=== PATIENT | male | born 1950 | race Caucasian/White ===

== ENCOUNTER 2018-01-03 11:41 | Emergency (ER) | payer MEDICARE | END 2018-01-03 15:16 | disposition home or self-care (01) | LOC: ERS 11:41 | DX: K59.00 Constipation, unspecified (principal); R33.9 Retention of urine, unspecified; F17.210 Nicotine dependence, cigarettes, uncomplicated; I10 Essential (primary) hypertension; E78.00 Pure hypercholesterolemia, unspecified; Z86.73 Personal history of transient ischemic attack (TIA), and cerebral infarction without residual deficits | CPT/HCPCS: 51702 ==

== ENCOUNTER 2018-09-15 19:53 | Emergency (ER) | payer MEDICARE ==
[2018-09-15 20:17] LABS: #Basophils 0.1 thou/uL (0.0-0.2); #Eosinphils 0.4 thou/uL (0.0-0.7); #Lymphocytes 2.6 thou/uL (1.20-3.40); #Monocytes 0.8 thou/uL (0.11-0.59); #Neutrophils 5.8 thou/uL (1.40-6.50); %Basophils 1.5 % (0.0-1.0); %Eosinophils 3.7 % (0.0-10.0); %Monocytes 8.6 % (0.0-10.0); %Neutrophils 59.3 % (42.0-75.0); Hemoglobin 15.1 g/dL (14.0-18.0); Mean Corpuscular Hemoglobin 30.8 pg (27.0-31.0); Mean Corpuscular Volume 93.1 fL (78.0-98.0); Mean Platelet Volume 6.1 fL (7.4-10.4); Platelet Count 388 thou/uL (130-400); Red Blood Cell (RBC) Count 4.91 mill/uL (4.70-6.10); White Blood Cell (WBC) Count 9.8 thou/uL (4.8-10.8)
[2018-09-15] MEDS ORDERED: predniSONE 20 MG TAB ONE (20:36)
[2018-09-15 20:43] LABS: ALT (SGPT) 15 U/L (8-55); AST (SGOT) 15 U/L (5-34); Albumin 4.4 g/dL (3.4-4.8); Alkaline Phosphatase 78 U/L (40-150); Anion Gap 14 mmol/L (10-20); BUN (Urea Nitrogen) 10 mg/dL (8.4-25.7); Bilirubin, Total 0.6 mg/dL (0.2-1.2); Calc. Creatinine Clearance 0 mL/min (70-130); Calcium 9.8 mg/dL (7.8-10.44); Carbon Dioxide 26 mmol/L (23-31); Chloride 103 mmol/L (98-107); Estimated GFR-MDRD 83; Globulin 3.1 g/dL (2.4-3.5); Glucose 108 mg/dL (80-115); Potassium 3.6 mmol/L (3.5-5.1); Protein, Total 7.5 g/dL (5.8-8.1); Sodium 139 mmol/L (136-145)
--- NOTE | 2018-09-15 20:46 | RAD ---
CHEST ONE VIEW: 09/15/18 HISTORY: Dyspnea. COMPARISON: 04/17/10. FINDINGS: The cardiac silhouette and pulmonary vasculature are unremarkable. The lungs remain hyperinflated. No confluent air space consolidation, or evidence of pneumothorax. IMPRESSION: COPD. Chronic type findings are stable. POS: [facility]
== END 2018-09-15 23:03 | disposition home or self-care (01) ==
LOC: ERS 19:53
DX: J44.1 Chronic obstructive pulmonary disease with (acute) exacerbation (principal); F17.210 Nicotine dependence, cigarettes, uncomplicated; E78.00 Pure hypercholesterolemia, unspecified; Z86.73 Personal history of transient ischemic attack (TIA), and cerebral infarction without residual deficits
CPT/HCPCS: 71045; 80053; 84484; 85025; 93005; 94640; J7506; J7620

== ENCOUNTER 2018-10-24 14:44 | Emergency (ER) | payer MEDICARE ==
[2018-10-24 16:04] LABS: Bilirubin Negative (Negative); Blood, Urine Moderate (Negative); Clarity CLEAR (Clear); Glucose, Urine (Dipstick) Negative (Negative); Leukocyte Negative (Negative); Nitrite Negative (Negative); Protein, Urine (Dipstick) Negative (Neg-Trace); Specific Gravity, Urine 1.005 (1.002-1.036); Urobilinogen 0.2 mg/dL (0.2-1.0)
[2018-10-24 16:07] LABS: Bacteria/HPF None Seen HPF (None Seen); Hyaline Casts/LPF 0-3 HYALINE CAST LPF (0-3 Hyaline); Pathc Cast-AUWi Flag 0.14 (0-2.49); Squamous Epithelial None Seen HPF (0-3); WBC/HPF 0-3 HPF (0-3)
--- NOTE | 2018-10-24 16:39 | RAD ---
ABDOMEN 2 VIEWS: Date: 10/24/18 HISTORY: Constipation and urinary retention. COMPARISON: None. FINDINGS: There is marked stool burden throughout the rectum. No air fluid levels are appreciated. On the uprig ht view, there is no free air under the hemidiaphragms. Mild dextroscoliosis of the thoracolumbar galdino ction. Moderate vascular calcifications. IMPRESSION: Moderate stool burden. POS: [facility]
== END 2018-10-24 16:50 | disposition home or self-care (01) ==
LOC: ERS 14:44
DX: R33.9 Retention of urine, unspecified (principal); K59.00 Constipation, unspecified; I10 Essential (primary) hypertension; J44.9 Chronic obstructive pulmonary disease, unspecified; F17.210 Nicotine dependence, cigarettes, uncomplicated
CPT/HCPCS: 51702; 74019; 81003; 81015

== ENCOUNTER 2019-01-28 08:54 | Outpatient (CLI) | payer MEDICARE ==
[2019-01-28] MEDS ORDERED: ISOVUE-370 76%-LOCM 1 ML ONE (09:52)
--- NOTE | 2019-01-28 09:58 | CT ---
CT Chest W Con History: COPD, hypertension Comparison: Chest CT 2017 Findings: There is an abnormal new nodule within the anterior segment right upper lobe which is spicu lated measuring approximately 5 mm. Calcified granuloma right lower lobe. New left infrahilar mass measures 3.8 x 3.2 x 4.5 cm highly suggestive of malignancy. There is minima l bronchial extension of this mass within the posterior and lateral basal left lower lobe bronchi with postobstructive pneumonitis. Left upper lobe is clear. Healing anterior left third rib fracture. No mediastinal adenopathy. No pericardial effusion. No supraclavicular adenopathy. Cyst interpolar po sterior cortex right kidney. Moderate vascular calcifications. Adrenal glands appear to be uninvolved. Moderate emphysematous changes. Impression: Large left left lower lobe mass with endobronchial extension and postobstructive pneumoni tis. Likely a satellite nodule within the right upper lobe. Findings are highly suggestive of malignancy. Pulmonary consultation recommended. This appears amenable to transbronchial biopsy.
== END 2019-01-28 08:55 | disposition home or self-care (01) ==
LOC: BICCT 08:54
PROVIDERS: ATTEND Nurse Practitioner Family
DX: J44.9 Chronic obstructive pulmonary disease, unspecified (principal); I10 Essential (primary) hypertension; Z12.5 Encounter for screening for malignant neoplasm of prostate; R63.6 Underweight; I25.10 Atherosclerotic heart disease of native coronary artery without angina pectoris; E78.5 Hyperlipidemia, unspecified; E55.9 Vitamin D deficiency, unspecified; R91.8 Other nonspecific abnormal finding of lung field; J18.9 Pneumonia, unspecified organism; Z72.0 Tobacco use
CPT/HCPCS: 71260

== ENCOUNTER 2019-03-01 06:08 | Day surgery (SDC) | payer MEDICARE ==
[2019-02-28 16:10] VITALS: BMI 18.8
[2019-03-01] MEDS ORDERED: Lidocaine 4% PF 5 ML AMP NEB SCH (07:00)
[2019-03-01] MEDS ORDERED: Sodium Chloride 0.9% 1,000 ML IV SCH (07:00)
[2019-03-01] MEDS ORDERED: Fentanyl 100 MCG/2 ML VIAL ONE (07:13)
[2019-03-01] MEDS ORDERED: Midazolam HCl 2 mg/2 ml Vial ONE (07:13)
[2019-03-01] MEDS ORDERED: Ketamine 50 MG/ML (10ML VIAL) ONE (07:14)
[2019-03-01] MEDS ORDERED: Lidocaine 4% Topical Sol 50 ML BOT ONE (07:27)
[2019-03-01] MEDS ORDERED: Albuterol Sulfate HFA (OR ONLY) ONE (07:27)
--- NOTE | 2019-03-01 10:48 | OP ---
DATE OF PROCEDURE: 03/01/2019 PROCEDURE PERFORMED: Fiberoptic bronchoscopy with endobronchial biopsy and endobronchial brushings. PREOPERATIVE DIAGNOSIS: Left lower lobe lung mass. POSTOPERATIVE DIAGNOSIS: Left lower lobe lung mass. ANESTHESIA: General endotracheal. DESCRIPTION OF PROCEDURE: Informed consent was signed by the patient prior to the procedure. He understood the risks involved including bleeding, infection, external lung puncture, and reaction to anesthesia. He agreed to proceed. The patient was brought to the endoscopy suite and placed on cardiopulmonary monitoring. He was intubated by Anesthesia after being given the appropriate preanesthetic agents. The endotracheal tube size was 8.0. An Olympus flexible bronchoscope was inserted through an adapter while the patient was on mechanical ventilation. The trachea had some scant mucoid secretions present. He had an accessory lobe coming off his trachea going towards the right upper lobe area. His right mainstem bronchus demonstrated an otherwise normal right lower lobe, right middle lobe. He also had a segment going up to where his right upper lobe should be. The left mainstem bronchus was normal to the bifurcation. Left upper lobe was normal in appearance. Left lower lobe showed a pedunculated tumor coming off the posterior aspect, which I could get the bronchoscope around. This tumor was biopsied and brushed. There was minimal bleeding. This was treated with topical epinephrine. The patient tolerated procedure well, was extubated by anesthesia after the procedure. Job ID: [id number]
[2019-03-01] MEDS ORDERED: Dexamethasone 20 MG/5 ML VIAL ONE (14:56)
[2019-03-01] MEDS ORDERED: EPINEPHrine 1 MG/10 ML Abboject SYRINGE ONE (14:56)
[2019-03-01] MEDS ORDERED: PROPOFOL 200 MG/20 ML VIAL ONE (14:56)
[2019-03-01] MEDS ORDERED: PHENYLEPHRINE-NS 100 MCG/ML 10 ML SYRINGE ONE (14:56)
[2019-03-01] MEDS ORDERED: Ondansetron PF 4 MG/2 ML Vial ONE (14:56)
[2019-03-01] MEDS ORDERED: Succinylcholine Chloride 20 MG/ML 10 ml SYRINGE FS ONE (14:56)
[2019-03-01] MEDS ORDERED: Lidocaine 1% PF 5 ML VIAL ONE (14:56)
== END 2019-03-01 10:00 | disposition home or self-care (01) ==
LOC: CANPRESDC → SDC 06:08
PROVIDERS: ATTEND Internal Medicine Critical Care Medicine
PROC: 0BDJ8ZX Extraction of Left Lower Lung Lobe, Via Natural or Artificial Opening Endoscopic, Diagnostic (ICD-10-PCS; principal; 2019-03-01)
PROC: 0BBJ8ZX Excision of Left Lower Lung Lobe, Via Natural or Artificial Opening Endoscopic, Diagnostic (ICD-10-PCS; 2019-03-01)
DX: C34.32 Malignant neoplasm of lower lobe, left bronchus or lung (principal); I10 Essential (primary) hypertension; J44.9 Chronic obstructive pulmonary disease, unspecified; M19.90 Unspecified osteoarthritis, unspecified site; Z86.73 Personal history of transient ischemic attack (TIA), and cerebral infarction without residual deficits; Z87.891 Personal history of nicotine dependence; Z88.2 Allergy status to sulfonamides; Z79.899 Other long term (current) drug therapy
CPT/HCPCS: 88104; 88112; 88305; 88313; 88341; 88342; J0131; J0171; J1100; J2001; J2250; J2405; J2704; J3010; J7620

== ENCOUNTER 2019-03-12 12:07 | Outpatient (CLI) | payer MEDICARE ==
--- NOTE | 2019-03-12 15:12 | PET ---
PET W CT Skull to Mid Thigh History: Malignant neoplasm of lower lobe, left bronchus or lung Comparison: CT chest January 28, 2019 Findings: PET CT from skull base to mid thigh was performed after the intravenous administration of 1 1.6 mCi F-18 FDG. Left lower lobe mass is similar in size with an SUV max 11.7. Post obstructive pneumonitis posterior and lateral basal left lower lobe. No metastatic supraclavicular or hilar adenopathy. No subcarinal or paratracheal adenopathy. No internal mammary or axillary adenopathy. No abnormal adrenal gland mass. No metastatic adenopathy within the retroperitoneum. No hepatic mass. No abnormal osseous radiotracer uptake. No pneumothorax. Moderate centrilobular emphysema. No free intraperitoneal gas or fluid. Moderate eulogio cified plaque of the aorta without aneurysmal dilatation. No hydronephrosis. Impression: Left lower lobe malignancy with endobronchial extension without evidence of metastatic di sease.
== END 2019-03-12 12:08 | disposition home or self-care (01) ==
LOC: PET 12:07
PROVIDERS: ATTEND Internal Medicine Hematology & Oncology
DX: C34.90 Malignant neoplasm of unspecified part of unspecified bronchus or lung (principal); C34.32 Malignant neoplasm of lower lobe, left bronchus or lung
CPT/HCPCS: 78815; A9552

== ENCOUNTER 2019-03-13 09:10 | Outpatient (CLI) | payer MEDICARE ==
--- NOTE | 2019-03-13 10:44 | MRI ---
Brain MRI with and without contrast: 03/13/2019 COMPARISON: Brain MRI without contrast 04/17/2010 HISTORY: Lung cancer, assess for metastatic disease TECHNIQUE: Multiplanar multisequence MR imaging of the brain is obtained with and without contrast FINDINGS: The diffusion weighted imaging demonstrates no evidence for acute infarction. There is extensive periventricular, deep, and subcortical white matter T2 and FLAIR hyperintensity, e vidence of significant small vessel disease. There is no midline shift or mass effect. There is mild diffuse ventricular enlargement with associat ed prominence of the CSF containing spaces. There is mild mucosal thickening involving the left maxillary sinus. There is patchy increased T2 signal identified within the camille, suggesting small vessel disease. The postcontrast imaging demonstrates no abnormal enhancement within the brain parenchyma to suggest the presence of intracranial metastatic disease. Arterial flow voids at the axial level of the skull base appear unremarkable on the T2-weighted imagi ng. Postcontrast imaging is slightly limited on the basis of motion artifact on the coronal and sagittal sequences. IMPRESSION: Evidence of small vessel disease. No MR evidence of intracranial metastatic disease.
== END 2019-03-13 09:11 | disposition home or self-care (01) ==
LOC: MRI 09:10
PROVIDERS: ATTEND Internal Medicine Hematology & Oncology
DX: C34.32 Malignant neoplasm of lower lobe, left bronchus or lung (principal); G93.9 Disorder of brain, unspecified
CPT/HCPCS: 70553

== ENCOUNTER 2019-03-26 08:52 | Day surgery (SDC) | payer MEDICARE ==
--- NOTE | 2019-03-22 12:39 | HP ---
SERVICE: Pulmonary Medicine. REASON FOR CONSULTATION: Mediastinal lymphadenopathy. HISTORY OF PRESENT ILLNESS: The patient is a 68-year-old white male with past medical history significant for a new diagnosis of adenocarcinoma of the lung. PET scan was negative for distal metastatic disease. The mediastinal lymph nodes were also unremarkable. That being said, he did have some small non-pathologic lymph nodes, but prominent in the mediastinal region. There are below the threshold of PET. Dr. Juarez has requested an endoscopic bronchial ultrasound for staging purposes. The patient is currently in his usual state of health. Otherwise, there are no complaints there. For past medical history, surgical history, family history, and social history, please refer to the H and P by Dr. Mulligan on March 01, 2019. ALLERGIES: SULFA. MEDICATIONS: For list of medications, please refer to Dr. Benito's H and P from this encounter. REVIEW OF SYSTEMS: General, head, ears, eyes, nose, throat, cardiovascular, respiratory, GI, , musculoskeletal, neurologic, and skin is negative except as mentioned in the HPI. IMAGING DATA: MRI of the brain demonstrates no acute intracranial abnormality. There is no evidence of metastatic disease in the FREELANCE DATA ENTRY. PET scan demonstrates left lower lobe malignancy, it is FDG avid. No evidence of metastatic disease is otherwise appreciated. CT of the chest dated January 28, 2019, demonstrates small mediastinal lymph nodes that are below the threshold of the PET. That being said, they are prominent but not quite considered pathologic based on radiographic standards. Particularly, there is an L4, 7, and L10 lymph node, which can be seen on CT evaluation. ASSESSMENT: 1. Adenocarcinoma of the lung. 2. Chronic obstructive pulmonary disease, very severe. DISCUSSION AND PLAN: I will proceed with an endoscopic bronchial-guided ultrasound fine-needle aspiration of L4, 7, and L10 if they can be identified on ultrasound. The patient will follow up with Dr. Juarez as previously directed. I am going to coordinate with Dr. Benito to attempt to do this procedure at the same time. Tentatively, we are scheduled for Tuesday, March 26, 2019. Job ID: [id number] MTDD
[2019-03-25 08:38] VITALS: BMI 19.9
[2019-03-26 09:50] LABS: #Basophils 0.1 thou/uL (0.0-0.2); #Eosinphils 0.2 thou/uL (0.0-0.7); #Lymphocytes 3.7 thou/uL (1.20-3.40); #Neutrophils 8.5 thou/uL (1.40-6.50); %Basophils 0.5 % (0.0-1.0); %Eosinophils 1.2 % (0.0-10.0); %Lymphocytes 27.8 % (21.0-51.0); %Monocytes 7.1 % (0.0-10.0); %Neutrophils 63.4 % (42.0-75.0); Hemoglobin 14.6 g/dL (14.0-18.0); Mean Corpuscular HGB CONC 32.5 g/dL (32.0-36.0); Mean Corpuscular Hemoglobin 29.2 pg (27.0-31.0); Mean Corpuscular Volume 89.8 fL (78.0-98.0); Mean Platelet Volume 5.9 fL (7.4-10.4); Platelet Count 367 thou/uL (130-400); RBC Distribution Width 12.5 % (11.5-14.5); Red Blood Cell (RBC) Count 4.99 mill/uL (4.70-6.10); White Blood Cell (WBC) Count 13.3 thou/uL (4.8-10.8)
[2019-03-26 09:59] LABS: INR-International Normal Ratio 0.9; PTT 27.1 SEC (22.9-36.1); Prothrombin Time 12.4 SEC (12.0-14.7)
[2019-03-26 10:10] LABS: Anion Gap 14 mmol/L (10-20); BUN (Urea Nitrogen) 17 mg/dL (8.4-25.7); Calc. Creatinine Clearance 51 mL/min (70-130); Calcium 9.7 mg/dL (7.8-10.44); Carbon Dioxide 26 mmol/L (23-31); Chloride 100 mmol/L (98-107); Estimated GFR-MDRD 80; Glucose 94 mg/dL (83-110); Potassium 4.4 mmol/L (3.5-5.1); Sodium 136 mmol/L (136-145)
[2019-03-26] MEDS ORDERED: Fentanyl 100 MCG/2 ML VIAL ONE ×2 (10:58→13:06)
[2019-03-26] MEDS ORDERED: Lidocaine 2% PF 5 ML VIAL ONE (10:58)
[2019-03-26] MEDS ORDERED: Bupivacaine/Epinephrine 0.25% 30 ML VIAL ONE (10:58)
--- NOTE | 2019-03-26 13:10 | OP ---
DATE OF PROCEDURE: 03/26/2019 PREOPERATIVE DIAGNOSIS: Lung cancer. POSTOPERATIVE DIAGNOSIS: Lung cancer. PROCEDURE PERFORMED: Tunneled central line with subcutaneous port (MediPort CT injectable). ANESTHESIA: General. ESTIMATED BLOOD LOSS: Minimal. COMPLICATIONS: None. SPECIMENS: None. FINDINGS: Tip of the catheter was at the atriocaval junction. DESCRIPTION OF PROCEDURE: The patient was taken to the operating room and laid supine on the operating room table. After general anesthetic was obtained, his bilateral neck and chest was shaved, prepped, and draped in a sterile fashion. Local anesthetic was infiltrated over the right internal jugular vein. Internal jugular vein was cannulated using a 22-gauge finder needle followed by a Seldinger needle. Wire was passed into superior vena cava under fluoro guidance. A dimas was made at the wire entrance site. A separate 3-cm incision made in the right upper chest. Subcutaneous pocket was made below the lower incision. Tubing for the MediPort tunneled from inferior to superior incision. Introducer sheath was placed over the wire into the superior vena cava under fluoro guidance. The dilator and wire were removed. The end of the catheter was sewn into the sheath. As the sheath was peeled away, the tip of the catheter was at the atriocaval junction. MediPort tubing was cut to fit the MediPort at the lower incision, MediPort tubing was connected to the MediPort. MediPort was sewn to the chest wall in the subcutaneous pocket using Prolene. MediPort flushes and draws blood without difficulty. It was flushed with a heparin flush. The wounds were all irrigated and closed using 3-0 Vicryl, 4-0 Monocryl, and Dermabond. The patient was sent to Recovery in stable condition. All instrument counts, needle counts, and lap counts were correct. Job ID: [id number]
--- NOTE | 2019-03-26 13:37 | PRG ---
DATE OF SERVICE: 03/26/2019 SERVICE: Pulmonary Medicine. INTERVAL HISTORY: The patient has increasing shortness of breath. He had a little bit of hypoxemic respiratory failure. He was initiated on oxygen. He denies any current chest pain, fevers, cough, nausea, or vomiting. Otherwise, he is in his usual state of health. He continues to have a little bit of dyspnea when he gets around, but not worse than typical. PHYSICAL EXAMINATION: VITAL SIGNS: Afebrile, pulse 60, blood pressure 124/67, respirations 16, saturation 92% on 1 L nasal cannula. GENERAL: The patient is awake and alert, in no apparent distress. LUNGS: Decent air entry on the right. Dependent crackles are minimal. No prolonged expiratory phase or wheezing is appreciated. HEART: Normal rate and regular. ABDOMEN: Soft, nontender, and nondistended. Bowel sounds are positive. MUSCULOSKELETAL: No cyanosis or clubbing. There is no pitting in the bilateral lower extremities. NEUROLOGIC: Grossly nonfocal. LABORATORY DATA: Hemoglobin is stable at 9.0. WBC 8.9, platelets 233,000. Sodium 132. Basic metabolic profile is otherwise unremarkable. Urinalysis is unremarkable. Urine protein electrophoresis is essentially unremarkable. Blood cultures x2 remain negative. ASSESSMENT: 1. Acute on chronic hypoxic respiratory failure. 2. 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 3. Pulmonary mass in the right upper lobe. 4. Bilateral pleural effusions, small. DISCUSSION AND PLAN: Pulmonary will continue to follow, intermittently while the patient remains inhouse. He has no further requirements at this point, he is stable, however, for transition out of the hospital. He will need to follow up with Oncology as previously directed. Job ID: [id number]
--- NOTE | 2019-03-26 13:48 | RAD ---
EXAM: Single view of the chest HISTORY: Line placement COMPARISON: None FINDINGS: Single view of the chest shows a normal sized cardiomediastinal silhouette. A right IJ Med iport is seen with its tip in the superior vena cava. No pneumothorax is seen. There is no evidence of consolidation, mass, or pleural effusion. The bones are unremarkable. IMPRESSION: No evidence of acute cardiopulmonary disease
--- NOTE | 2019-03-26 17:25 | OP ---
DATE OF PROCEDURE: 03/26/2019 SERVICE: Pulmonary Medicine. PROCEDURE PERFORMED: Fiberoptic bronchoscopy with, 1. Limited visual airway inspection. 2. Endoscopic bronchial ultrasound-guided transbronchial needle aspiration of station L4, 7, L10. PREOPERATIVE DIAGNOSES: 1. Adenocarcinoma of the lung. 2. Mediastinal lymphadenopathy. POSTOPERATIVE DIAGNOSES: 1. Adenocarcinoma of the lung. 2. Mediastinal lymphadenopathy. ANESTHESIA: General. PREANESTHESIA ASSESSMENT: H and P had been performed. The patient's medications and allergies were reviewed. Informed consent was obtained after discussing the rationale, benefits, and risks of the procedure. Alternative options for sample collection were discussed. TIME-OUT: The patient was positively identified with name and date of . The proposed procedure was verified. DESCRIPTION OF PROCEDURE: After induction of anesthesia, the curvilinear endoscopic bronchial ultrasound Olympus bronchoscope was introduced through the endotracheal tube and into the tracheobronchial tree. Limited airway inspection was performed. No abnormality was identified in the mainstem bronchi or trachea. The bronchoscope was then withdrawn into the trachea and a jorge survey was performed. Endoscopic bronchial ultrasound, transbronchial needle aspiration of station L4 in the AP window, 7, and L10 was completed. There was no significant bleeding post biopsy. By ultrasound, the lymph nodes did not have a pathologic appearance. They seemed to respect all tissue planes. The patient had stable vitals throughout the entire procedure without significant desaturation. FINDINGS: 1. Shyla appeared slightly blunted. 2. Rapid on-site pathology demonstrated no malignant cells on preliminary review. SPECIMENS OBTAINED: Final aspiration of station L4, 7, L10 for cytology. COMPLICATIONS: None. ESTIMATED BLOOD LOSS: 2 mL. DISPOSITION: The patient will be discharged home once he meets criteria. Job ID: [id number]
--- NOTE | 2019-03-26 18:55 | EKG ---
Test Reason : PREOP Blood Pressure : / mmHG Vent. Rate : 078 BPM Atrial Rate : 078 BPM P-R Int : 136 ms QRS Dur : 072 ms QT Int : 376 ms P-R-T Axes : 078 055 080 degrees QTc Int : 428 ms Sinus rhythm with occasional Premature ventricular complexes ST abnormality, possible digitalis effect Abnormal ECG When compared with ECG of 15-SEP-2018 20:07, Premature ventricular complexes are now Present Confirmed by ANISHA LARA, SGeoff ([id number]) on 03/26/2019 6:54:46 PM Referred By: JAYJAY Confirmed By:DR. Mp LANCASTER MD
== END 2019-03-26 15:10 | disposition home or self-care (01) ==
LOC: SDC 08:52
PROVIDERS: ATTEND Surgery
PROC: 0JH83XZ Insertion of Tunneled Vascular Access Device into Abdomen Subcutaneous Tissue and Fascia, Percutaneous Approach (ICD-10-PCS; principal; 2019-03-26)
PROC: 05HM33Z Insertion of Infusion Device into Right Internal Jugular Vein, Percutaneous Approach (ICD-10-PCS; 2019-03-26)
PROC: 07978ZX Drainage of Thorax Lymphatic, Via Natural or Artificial Opening Endoscopic Approach, Diagnostic (ICD-10-PCS; 2019-03-26)
DX: C34.90 Malignant neoplasm of unspecified part of unspecified bronchus or lung (principal); R59.0 Localized enlarged lymph nodes; J44.9 Chronic obstructive pulmonary disease, unspecified; I10 Essential (primary) hypertension; M19.90 Unspecified osteoarthritis, unspecified site; E78.5 Hyperlipidemia, unspecified; Z88.2 Allergy status to sulfonamides
CPT/HCPCS: 36415; 71045; 80048; 85025; 85610; 85730; 88172; 88173; 88177; 93005; 93010; C1788; J1642; J2001; J3010; J7620

== ENCOUNTER 2019-06-02 10:12 | Inpatient (IN) | payer MEDICARE ==
[2019-06-02] MEDS ORDERED: Piperacillin/Tazobactam 4.5 GM VIAL ONE ×2 (10:27→10:29)
[2019-06-02] MEDS ORDERED: Dexamethasone 4 mg/ml Vial ONE (10:27)
[2019-06-02 10:36] LABS: Actual Bicarbonate (HCO3a) 18.3 mEq/L (22-28); Analyzer IN Cardio ER; Base Excess (BEa) -6.6 mEq/L (-2.0 to +3.0); CO2 Tension 34.2 mmHg (35.0-45.0); Carboxyhemoglobin (COHb) 0.1 gm% (0.0-3.0); Hemoglobin (Hb) 9.6 g/dL (14.0-18.0); O2 Tension (PaO2) 96.7 mmHg (> 70.0); Potassium - ABG Lab 3.71 mmol/L (3.70-5.30); pH, Arterial 7.35 (7.35-7.45)
[2019-06-02 10:37] LABS: Puncture Site RR
--- NOTE | 2019-06-02 10:37 | RAD ---
Chest one view HISTORY: Dyspnea. COMPARISON: 03/26/2019: FINDINGS: Cardiac silhouette is magnified by projection. Pulmonary vasculature is unremarkable. Media stinum is midline with aortic calcification and a right internal jugular Port-A-Cath. Lungs are hyperinflated. Subtle parenchymal opacity at the left lateral lung base is present. It is m uch less dense and is smaller than the parenchymal opacity on the previous exam. Calcified granulomata are consistent with healed granulomatous disease. Old left rib fractures. No ev idence of pneumothorax. IMPRESSION: Emphysema. Minimal scarring/atelectasis left lung base. No active cardiopulmonary abnormalities are reliably demonstrated. Atherosclerosis.
[2019-06-02 11:21] LABS: #Eosinphils 0.1 thou/uL (0.0-0.7); #Lymphocytes 0.8 thou/uL (1.20-3.40); #Monocytes 0.6 thou/uL (0.11-0.59); #Neutrophils 7.4 thou/uL (1.40-6.50); %Basophils 0.2 % (0.0-1.0); %Eosinophils 1.5 % (0.0-10.0); %Lymphocytes 8.9 % (21.0-51.0); %Monocytes 6.7 % (0.0-10.0); %Neutrophils 82.7 % (42.0-75.0); Anisocytosis SLIGHT = 6-15 cells (100X) (0-5/hpf); Hemoglobin 9.3 g/dL (14.0-18.0); MDiff Complete? YES; Mean Corpuscular HGB CONC 34.4 g/dL (32.0-36.0); Mean Corpuscular Hemoglobin 32.8 pg (27.0-31.0); Mean Corpuscular Volume 95.2 fL (78.0-98.0); Mean Platelet Volume 5.5 fL (7.4-10.4); Platelet Count 245 thou/uL (130-400); Red Blood Cell (RBC) Count 2.84 mill/uL (4.70-6.10); White Blood Cell (WBC) Count 8.9 thou/uL (4.8-10.8)
[2019-06-02 11:29] LABS: ALT (SGPT) 13 U/L (8-55); AST (SGOT) 15 U/L (5-34); Albumin 4.1 g/dL (3.4-4.8); Alkaline Phosphatase 81 U/L (40-110); Anion Gap 17 mmol/L (10-20); BUN (Urea Nitrogen) 20 mg/dL (8.4-25.7); Bilirubin, Total 0.7 mg/dL (0.2-1.2); CK (CPK) 113 U/L (30-200); Calc. Creatinine Clearance 0 mL/min (70-130); Calcium 8.8 mg/dL (7.8-10.44); Carbon Dioxide 20 mmol/L (23-31); Chloride 105 mmol/L (98-107); Estimated GFR-MDRD Greater than 90; Globulin 2.2 g/dL (2.4-3.5); Glucose 156 mg/dL (83-110); Lipase 14 U/L (8-78); Potassium 3.8 mmol/L (3.5-5.1); Protein, Total 6.3 g/dL (5.8-8.1); Sodium 138 mmol/L (136-145)
[2019-06-02 11:33] LABS: CKMB 2.5 ng/mL (0-6.6)
--- NOTE | 2019-06-02 14:52 | HP ---
CHIEF COMPLAINT: Shortness of breath. HISTORY OF PRESENT ILLNESS: The patient is a 69-year-old male with a past medical history of hypertension, COPD, hyperlipidemia, lung cancer and CVA 9 years ago, who presented to the emergency room with complaints of shortness of breath, which is going on for approximately 3 days. He denied any fever or chills. He has some nonproductive cough. He denies any chest pain. His primary care physician is Mya Loo in [facility]. The surrogate decision maker is the daughter. PAST MEDICAL HISTORY: As mentioned above. 1. Hyperlipidemia. 2. Hypertension. 3. CVA. 4. COPD. 5. Lung cancer, status post chemo and radiation treatments. PAST SURGICAL HISTORY: Lung biopsy x2. SOCIAL HISTORY: He drinks socially. He smokes about half a pack of cigarettes per day. He does not use any illicit drugs. MEDICATIONS: 1. DuoNeb every 4 hours. 2. Prednisone 20 mg once a day. 3. Flomax twice a day 0.4 mg. 4. Amlodipine 10 mg once a day. 5. Aspirin 81 mg once a day. FAMILY HISTORY: Mother had pneumonia and she when she was 82 and there is not much known about his father. REVIEW OF SYSTEMS: All 14 systems were reviewed and they are positive for constipation, bowel movements every third day, lack of appetite for the last few days, some weight loss recently and otherwise all systems were negative except for those symptoms mentioned in HPI. PHYSICAL EXAMINATION: VITAL SIGNS: Blood pressure is 84/56, pulse is 110, respiratory rate is 24 to 26. HEENT: His head is atraumatic and normocephalic. Eyes are PERRLA. Sclerae are nonicteric. Conjunctivae palish. Oral mucosa is somewhat dry. NECK: Supple. LUNGS: Very emphysematous. No crackles, no rales, no wheezing. HEART: S1, S2. Tachycardic. No S3. No S4. ABDOMEN: Soft, nontender, nondistended. EXTREMITIES: No clubbing, cyanosis, or edema. NEUROLOGIC: He follows my commands. He moves his all 4 extremities. There is no any sensory or motor deficits present. Cranial nerves are intact. LABORATORY DATA: Labs showed white count of 8.9, hemoglobin of 9.3, hematocrit 27.0, platelet count 245,000. ABGs showed pH of 7.35, pCO2 of 34.2, PO2 of 96.7. Electrolytes within normal limits. CO2 of 20, BUN 20, creatinine 0.82. Lactic acid 3.8, globulin 2.2. EKG personally reviewed by me showed sinus tachycardia, nonspecific ST-T wave abnormalities. Chest x-ray showed very emphysematous lungs, no infiltrates. IMPRESSION: 1. Exacerbation of chronic obstructive pulmonary disease with hypoxia. 2. Hypertension, per history. 3. Hypotension. I think this is related to this BiPAP mask use. 4. Hyperlipidemia. 5. Lung cancer, status post chemo and radiation recently finished. PLAN: Full admission to [facility]. Condition is guarded. DNR/DNI status. IV fluids normal saline at 75 mL/hour. The patient received 1 L of IV fluids. We are going to continue his Levaquin 500 mg IV piggyback every 24 hours. He received 750 mg one dose in the emergency room. I am not going to continue vancomycin or Zosyn he received in the emergency room. He received also Decadron 10 mg IV push and we will start him on Solu-Medrol tonight every 6 hours 40 mg. We will continue DuoNebs, albuterol and Atrovent every 4 hours and we will switch him to a Ventimask 50%. We will do DVT prophylaxis with SCDs and Lovenox 30 mg subcutaneously every day. Job ID: [id number]
[2019-06-02 15:19] LABS: Lactic Acid 4.8 mmol/L (0.5-2.2)
[2019-06-02] MEDS ORDERED: Ondansetron ODT 4 MG TAB SL PRN (16:59)
[2019-06-02] MEDS ORDERED: Sodium Chloride 0.9% 1,000 ML IV SCH (16:59)
[2019-06-02] MEDS ORDERED: Ondansetron PF 4 MG/2 ML Vial IVP PRN ×2 (16:59→17:06)
[2019-06-02] MEDS ORDERED: Piperacillin/Tazobactam 4.5 GM in Sodium Chloride 0.9% 100 ML IVPB SCH (18:00)
[2019-06-02] MEDS: Budesonide 0.25 MG/2 ML NEB INH SCH (18:36)
[2019-06-02] MEDS: methylPREDNISolone Sod Succ/PF 125 MG/2 ML VIAL IVP SCH (19:12)
[2019-06-02] MEDS ORDERED: Lorazepam 0.5 MG TAB PO PRN (19:23)
[2019-06-02] MEDS: Sodium Chloride 0.9% 1,000 ML IV SCH (20:23)
[2019-06-02] MEDS ORDERED: Dexamethasone 10 MG/ML VIAL SLOW IVP SCH (22:00)
[2019-06-02] MEDS ORDERED: Vancomycin HCl 1 GM in Premix Bag 1 BAG IVPB SCH (22:00)
[2019-06-03] MEDS: methylPREDNISolone Sod Succ/PF 125 MG/2 ML VIAL IVP SCH ×4 (00:09→18:38)
[2019-06-03 06:05] LABS: Anion Gap 13 mmol/L (10-20); BUN (Urea Nitrogen) 17 mg/dL (8.4-25.7); Calc. Creatinine Clearance 65 mL/min (70-130); Calcium 8.3 mg/dL (7.8-10.44); Carbon Dioxide 19 mmol/L (23-31); Chloride 108 mmol/L (98-107); Estimated GFR-MDRD Greater than 90; Glucose 142 mg/dL (83-110); Potassium 3.8 mmol/L (3.5-5.1); Sodium 136 mmol/L (136-145)
[2019-06-03] MEDS: Sodium Chloride 0.9% 1,000 ML IV SCH (06:23)
[2019-06-03 06:47] LABS: #Lymphocytes 0.4 thou/uL (1.20-3.40); #Monocytes 0.3 thou/uL (0.11-0.59); %Lymphocytes 5.4 % (21.0-51.0); %Neutrophils 90.6 % (42.0-75.0); Mean Corpuscular HGB CONC 34.4 g/dL (32.0-36.0); Mean Corpuscular Hemoglobin 33.1 pg (27.0-31.0); Mean Corpuscular Volume 96.3 fL (78.0-98.0); Mean Platelet Volume 5.7 fL (7.4-10.4); Platelet Count 224 thou/uL (130-400); RBC Distribution Width 19.1 % (11.5-14.5); Red Blood Cell (RBC) Count 2.41 mill/uL (4.70-6.10); White Blood Cell (WBC) Count 7.8 thou/uL (4.8-10.8)
[2019-06-03] MEDS: Budesonide 0.25 MG/2 ML NEB INH SCH ×2 (07:39→19:25)
[2019-06-03] MEDS: Docusate 100 MG CAP PO SCH ×2 (08:48→20:10)
[2019-06-03] MEDS: Enoxaparin Sodium 30 MG/0.3 ML SYRINGE SC SCH (08:48)
[2019-06-03] MEDS: Loratadine 10 MG TAB PO SCH (08:48)
[2019-06-03] MEDS ORDERED: FLU VACC TS2019-20(65YR UP)/PF 180 MCG/0.5 ML SYRINGE IM ONE (09:00)
[2019-06-03] MEDS ORDERED: Prevnar 13-Val Conj/PF 0.5 ML SYRINGE IM ONE (09:00)
--- NOTE | 2019-06-03 12:33 | PRG ---
DATE OF SERVICE: 06/03/2019 SUBJECTIVE: The patient is seen and examined at the bedside. He is feeling better. His appetite is fair. There were no any unexpected events overnight. He is on nasal cannula using through his mouth. OBJECTIVE: VITAL SIGNS: Blood pressure is 117/67, pulse is 114, respirations 18, O2 saturation 99% on 2 L by nasal cannula, his pulse oximetry is , and temperature is 99.3. HEENT: His eyes are PERRLA. Sclerae are nonicteric. Oral mucosa is moist. LUNGS: Emphysematous. No wheezing. HEART: S1 and S2. Tachycardic. No S3. No S4. ABDOMEN: Soft, nontender, nondistended. EXTREMITIES: No clubbing, cyanosis, or edema. NEUROLOGIC: Intact. LABORATORY DATA: White count of 7.8, hemoglobin 8.0, hematocrit 23.2, platelet count is 224,000. Sodium of 136, potassium 3.8, chloride 108, CO2 is 19, creatinine 0.75, BUN 17, glucose 142, and calcium 8.3. Microbiology, 2 blood cultures negative so far. IMPRESSION: 1. Acute exacerbation of chronic obstructive pulmonary disease. 2. Acute on chronic respiratory failure. 3. Hypertension per history. 4. Hypotension. The patient's blood pressure recovered as soon as his BiPAP mask was taken off and he was switched to nasal cannula yesterday. 5. Hyperlipidemia. 6. Lung cancer, status post chemotherapy and radiation therapy recently finished. PLAN: We will continue his DNR/DNI status. He is in IMCU. His IV fluids will be stopped. He is able to eat and drink orally. We will continue his levofloxacin. Continue his DuoNeb. We will continue his Solu-Medrol and inhaled steroids. Wool Classer is supposed to see him today. Job ID: [id number]
--- NOTE | 2019-06-03 13:37 | CON ---
DATE OF CONSULTATION: HISTORY OF PRESENT ILLNESS: Hernan Forde is a 69-year-old gentleman with known COPD, known bronchogenic carcinoma, adeno, who sees Dr. Mulligan. Presented with increasing shortness of breath, unresponsive to usual home medication. Still having difficulty breathing this morning. Sputum is relatively clear. Most days, he can barely walk half a block without getting markedly short of breath. He was smoking until most recently. He is given the Solu-Medrol and magnesium. PAST MEDICAL HISTORY: Hypertension, high cholesterol, COPD, previous CVA, COPD, lung cancer, adeno, status post chemoradiation. PREVIOUS SURGERIES: Apparently MediPort, bronchoscopy. SOCIAL HISTORY: He said he has quit smoking. No alcohol abuse. HOME MEDICATIONS: Include; 1. Prednisone. 2. Lovastatin. 3. Losartan. 4. Albuterol. 5. Amlodipine. ALLERGIES: SULFA. REVIEW OF SYSTEMS: Otherwise, 10-point negative. PHYSICAL EXAMINATION: VITAL SIGNS: On examination, blood pressure is 151/68, pulse 109, saturations , and respirations 18. CHEST: Decreased breath sounds. No wheezing. CARDIAC: Normal S1 and S2. No gallops. ABDOMEN: No masses. NEUROLOGIC: He is awake, alert, and responsive. LABORATORY DATA: PO2 was 96, pCO2 on 3 L nasal O2. His lytes are normal. His bicarb was 20. Lactic acid slightly elevated. ASSESSMENT: 1. Chronic obstructive pulmonary disease exacerbation. 2. Bronchitis. 3. Anemia. 4. Lung cancer. PLAN: Continue neb treatments, steroids. Added Dulera to his present treatment. We will follow. Notify Dr. Mulligan. Consultation note, 70 minutes, 50% direct patient care. Job ID: [id number]
[2019-06-03] MEDS ORDERED: Loratadine 10 MG TAB PO PRN (13:48)
[2019-06-03] MEDS: Mometasone/Formoterol 120 PUFF INHALER INH SCH (19:26)
[2019-06-03] MEDS: Rosuvastatin 10 MG TAB PO SCH (20:10)
[2019-06-03] MEDS: Calcium Carbonate 500 MG ChewTAB PO PRN (23:03)
[2019-06-04] MEDS: methylPREDNISolone Sod Succ/PF 125 MG/2 ML VIAL IVP SCH ×4 (00:55→17:25)
[2019-06-04 04:00] LABS: #Lymphocytes 0.3 thou/uL (1.20-3.40); #Monocytes 0.5 thou/uL (0.11-0.59); #Neutrophils 9.8 thou/uL (1.40-6.50); %Eosinophils 0.1 % (0.0-10.0); %Lymphocytes 3.1 % (21.0-51.0); %Monocytes 5.1 % (0.0-10.0); %Neutrophils 91.7 % (42.0-75.0); Hemoglobin 8.2 g/dL (14.0-18.0); Mean Corpuscular HGB CONC 34.2 g/dL (32.0-36.0); Mean Corpuscular Hemoglobin 33.1 pg (27.0-31.0); Mean Platelet Volume 5.5 fL (7.4-10.4); Platelet Count 229 thou/uL (130-400); RBC Distribution Width 19.1 % (11.5-14.5); Red Blood Cell (RBC) Count 2.49 mill/uL (4.70-6.10); White Blood Cell (WBC) Count 10.6 thou/uL (4.8-10.8)
[2019-06-04 04:21] LABS: Anion Gap 10 mmol/L (10-20); BUN (Urea Nitrogen) 21 mg/dL (8.4-25.7); Calc. Creatinine Clearance 65 mL/min (70-130); Calcium 8.8 mg/dL (7.8-10.44); Carbon Dioxide 24 mmol/L (23-31); Chloride 107 mmol/L (98-107); Estimated GFR-MDRD Greater than 90; Glucose 151 mg/dL (83-110); Potassium 3.3 mmol/L (3.5-5.1); Sodium 138 mmol/L (136-145)
[2019-06-04] MEDS: Mometasone/Formoterol 120 PUFF INHALER INH SCH ×2 (07:22→18:19)
[2019-06-04] MEDS: Budesonide 0.25 MG/2 ML NEB INH SCH ×2 (07:22→18:19)
[2019-06-04] MEDS: Aspirin Chewable 81 MG TAB PO SCH (08:32)
[2019-06-04] MEDS: Losartan 25 MG TAB PO SCH (08:32)
[2019-06-04] MEDS: Loratadine 10 MG TAB PO SCH (08:32)
[2019-06-04] MEDS: Amlodipine 5 MG TAB PO SCH (08:32)
[2019-06-04] MEDS: Docusate 100 MG CAP PO SCH ×2 (08:33→22:08)
[2019-06-04] MEDS: Enoxaparin Sodium 30 MG/0.3 ML SYRINGE SC SCH (08:33)
[2019-06-04] MEDS: Calcium Carbonate 500 MG ChewTAB PO PRN ×3 (08:39→22:09)
[2019-06-04] MEDS ORDERED: SAW PALMETTO 450 MG PO SCH (09:00)
--- NOTE | 2019-06-04 09:19 | PRG ---
DATE OF SERVICE: 06/04/2019 SUBJECTIVE: The patient is still complaining of shortness of breath. Has no other complaints at this time. OBJECTIVE: VITAL SIGNS: His temperature is 98.8, pulse 103, blood pressure 128/82, and O2 saturation 100% on room air. HEENT: Unremarkable. NECK: No adenopathy or JVD. LUNGS: Diminished breath sounds throughout. No wheezing. He has a radiation burn in left chest posteriorly. CARDIOVASCULAR: S1 and S2. Tachycardic. ABDOMEN: Soft. EXTREMITIES: No edema. LABORATORY DATA: White blood cell count 10.6, hematocrit 24.1, and platelet count 229. Sodium 138, potassium 3.3, chloride 107, CO2 of 24, BUN 21, creatinine 0.7, and glucose 151. ASSESSMENT: 1. Chronic obstructive pulmonary disease with exacerbation. 2. Lactic acidosis at the time of admission. 3. Status post radiation chemotherapy for lung cancer. PLAN: In addition to the current treatment of steroids, nebulization therapy, and antibiotics, I would go ahead and check an echo and just make sure his cardiac status is okay. The degree of lactic acidosis is little unusual given the apparent mildness of his pulmonary symptoms. We also need to keep in mind that he is profoundly anemic and that could also be contributing to his shortness of breath. Job ID: [id number]
[2019-06-04] MEDS ORDERED: Potassium Chloride 20 MEQ TAB PO SCH (09:45)
[2019-06-04] MEDS ORDERED: ISOVUE-370 76%-LOCM 1 ML ONE (11:04)
--- NOTE | 2019-06-04 11:14 | CT ---
EXAM: CTA of the chest HISTORY: Shortness of breath COMPARISON: None TECHNIQUE: Multiple contiguous axial images were obtained a CTA of the chest with contrast per pulmon hannah embolism protocol. 3-D oblique MIP reformats and direct coronal reformats were performed. FINDINGS: HEART: Normal in size without focal cardiac abnormality. PULMONARY ARTERIES: Normal in caliber without filling defects to suggest pulmonary emboli. MEDIASTINUM: No hilar or mediastinal lymphadenopathy. LUNGS: Bibasilar atelectasis. A calcified granuloma is seen in the right lung base. Emphysematous melchor nges are seen in the lungs. PLEURAL SPACE: No pleural effusion or pneumothorax. CHEST WALL SOFT TISSUES: A right-sided Mediport is seen with its tip in the superior vena cava. VISUALIZED OSSEOUS STRUCTURES: Unremarkable VISUALIZED SUBDIAPHRAGMATIC STRUCTURES: Right renal cyst IMPRESSION: 1. No evidence of pulmonary thromboembolism 2. Severe emphysema 3. Bibasilar atelectasis
--- NOTE | 2019-06-04 18:29 | PDOC.HOSPP ---
- Subjective Encounter Date: 06/04/19 Encounter Time: 18:00 Subjective: The patient states he feels much better compared to yesterday his breathing has improved. Reports that he felt sudden onset of shortness of breath, had no fevers, chills or chest pain. He denied any recent infection - Objective Vital Signs & Weight: Vital Signs (12 hours) Temp Pulse Resp BP Pulse Ox 06/04/19 18:18 109 H 20 94 L 06/04/19 18:00 99 06/04/19 17:00 99 06/04/19 16:00 98.0 F 06/04/19 12:00 98.7 F 06/04/19 10:10 111 H 20 95 06/04/19 08:32 123 H 153/73 H 95 06/04/19 07:47 98.8 F 06/04/19 07:24 97 06/04/19 07:21 115 H 14 98 Weight Admit Weight 112 lb 9.6 oz Weight 112 lb 9.6 oz Most Recent Monitor Data Heart Rate from ECG 110 NIBP 120/75 NIBP BP-Mean 90 Respiration from ECG 27 SpO2 92 I&O: 06/03/19 06/04/19 06/05/19 06:59 06:59 06:59 Intake Total 1049 1620 820 Output Total 200 1325 300 Balance 849 295 520 Result Diagrams: 06/04/19 03:43 06/04/19 03:43 Hospitalist ROS - Review of Systems Constitutional: denies: sweats, weakness - Medication Medications: Active Medications Generic Name Dose Route Start Last Admin Trade Name Freq PRN Reason Stop Dose Admin Albuterol/Ipratropium 3 ml 06/02/19 17:04 06/03/19 04:52 Duoneb NEB 3 ml [id number] PRN Administration SOB &/or Wheezing Albuterol/Ipratropium 3 ml 06/02/19 18:30 06/04/19 18:18 Duoneb NEB 3 ml [id number] GARRY Administration Amlodipine Besylate 5 mg 06/04/19 09:00 06/04/19 08:32 Norvasc PO 5 mg DAILY GARRY Administration Aspirin 81 mg 06/04/19 09:00 06/04/19 08:32 Aspirin Chewable PO 81 mg DAILY GARRY Administration Budesonide 0.25 mg 06/02/19 18:30 06/04/19 18:19 Pulmicort Neb Solution INH 0.25 mg BID-RT GARRY Administration Calcium Carbonate 1,000 mg 06/03/19 21:45 06/04/19 16:15 Tums PO 1,000 mg Q6H PRN Administration HEARTBURN/INDIGESTION Cholecalciferol 1,000 units 06/04/19 09:00 06/04/19 08:33 Vitamin D3 PO 1,000 units DAILY GARRY Administration Docusate Sodium 100 mg 06/03/19 09:00 06/04/19 08:33 Colace PO Not Given BID GARRY Enoxaparin Sodium 30 mg 06/03/19 09:00 06/04/19 08:33 Lovenox SC 30 mg 0900 GARRY Administration Levofloxacin 500 mg/ Device 100 mls @ 100 mls/hr 06/03/19 11:00 06/04/19 09: 57 IVPB 100 mls 1100 GARRY Administration Loratadine 10 mg 06/03/19 09:00 06/04/19 08:32 Claritin PO 10 mg DAILY GARRY Administration Lorazepam 0.5 mg 06/02/19 19:23 06/03/19 08:15 Ativan PO 0.5 mg Q6H PRN Administration Anxiety Losartan Potassium 25 mg 06/04/19 09:00 06/04/19 08:32 Cozaar PO 25 mg DAILY GARRY Administration Methylprednisolone Sodium Succinate 40 mg 06/02/19 18:00 06/04/19 17:25 Solu-Medrol IVP 40 mg Q6HR GARRY Administration Mometasone Furoate/Formoterol Fumar 2 puff 06/03/19 18:30 06/04/19 18:19 Dulera 200 Mcg/5 Mcg Inhaler INH 2 puff BID-RT GARRY Administration Rosuvastatin Calcium 10 mg 06/03/19 21:00 06/03/19 20:10 Crestor PO 10 mg HS GARRY Administration - Exam General Appearance: NAD, awake alert Eye: PERRL, anicteric sclera ENT: normocephalic atraumatic, no oropharyngeal lesions Neck: supple, symmetric, no JVD, no thyromegaly Heart: RRR, no murmur, no gallops, no rubs, normal peripheral pulses Respiratory: CTAB, no wheezes, no rales, no ronchi Gastrointestinal: soft, non-tender, non-distended Extremities: no cyanosis, no clubbing, no edema Skin: normal turgor, no lesions, no rashes Neurological: cranial nerve grossly intact, normal sensation to touch, no focal deficits, no new deficit Musculoskeletal: normal tone, normal strength, no muscle wasting Psychiatric: normal affect, normal behavior, A&O x 3, oriented to person Hosp A/P - Plan CTA chest: no evidence of PE, severe emphysema, bibasilar atelectasis Chest X ray: emphysema. Minimal scarring/atelectasis left lung base. No active cardiopulmonary abnormalities. Atherosclerosis This is a 69 year old male with past medical history of lung cancer, COPD, hyperlipidemia, hypertension, CV, COPD who presented with acute shortness of breath, requirign ICU admission on 50% venti-mask Acute hypoxic respiratory failure likely secondary to COPD exacerbation - chest X ray showed emphysema, CTA showed no PE, firsit troponin negative - blood cultures are negative, continue IV methylprednisone for now, continue IV levaquin - check ECHO Lactic acidosis - resolved -was 4.8 on admission, now down to 2.0, unclear etiology, repeat troponins and ECHO - no evidence of pneumonia Hypokalemia - potassium 3.3, s/p 40 meq potassium Anemia - Hb 8.2, B12 and folate normal History of Lung cancer - in remission currently BPH - flomax and tamulosin Hypertension - continue amlodipine and losartan Code status: full code Diet: regular diet
[2019-06-04 19:25] LABS: Potassium 3.6 mmol/L (3.5-5.1)
[2019-06-04] MEDS: Rosuvastatin 10 MG TAB PO SCH (22:09)
[2019-06-05] MEDS: methylPREDNISolone Sod Succ/PF 125 MG/2 ML VIAL IVP SCH (02:00)
[2019-06-05] MEDS ORDERED: methylPREDNISolone Sod Succ 40 MG VIAL IVP SCH (06:00)
[2019-06-05] MEDS: Mometasone/Formoterol 120 PUFF INHALER INH SCH ×2 (07:30→19:03)
[2019-06-05] MEDS: Budesonide 0.25 MG/2 ML NEB INH SCH ×2 (07:31→19:02)
[2019-06-05] MEDS: Loratadine 10 MG TAB PO SCH (09:22)
[2019-06-05] MEDS: Enoxaparin Sodium 30 MG/0.3 ML SYRINGE SC SCH (09:22)
[2019-06-05] MEDS: Aspirin Chewable 81 MG TAB PO SCH (09:23)
[2019-06-05] MEDS: Docusate 100 MG CAP PO SCH ×2 (09:23→19:25)
[2019-06-05] MEDS: Amlodipine 5 MG TAB PO SCH (09:23)
[2019-06-05] MEDS: Losartan 25 MG TAB PO SCH (09:23)
--- NOTE | 2019-06-05 10:32 | PRG ---
DATE OF SERVICE: 06/05/2019 SUBJECTIVE: He feels better, had no acute complaints. OBJECTIVE: VITAL SIGNS: Temperature is 98.6, pulse 105, blood pressure 127/77, O2 saturations in the low 90s. HEENT: Unremarkable. NECK: No adenopathy or JVD. LUNGS: Poor air movement. CARDIAC: S1 and S2. Regular. ABDOMEN: Soft. EXTREMITIES: No edema. IMAGING STUDIES: CT of the chest was reviewed. He had no evidence of pulmonary emboli. His lung mass is dramatically better to the point, where I do not even see residual at this time. LABORATORY DATA: None obtained today. ASSESSMENT: 1. Chronic obstructive pulmonary disease with exacerbation. 2. Acute on chronic hypoxic respiratory failure. PLAN: Transfer to the medical floor. Continue steroids, nebs, antibiotics. Await results of the echo. Job ID: [id number]
[2019-06-05] MEDS: methylPREDNISolone Sod Succ 40 MG VIAL IVP SCH ×3 (11:26→23:32)
--- NOTE | 2019-06-05 15:36 | PDOC.HOSPP ---
- Subjective Encounter Date: 06/05/19 Encounter Time: 15:00 Subjective: The patient states his breathing is much better. He has been weaned off to room air. Denies chest pain. Denies cough or fevers. He is about to have a bath - Objective Vital Signs & Weight: Vital Signs (12 hours) Temp Pulse Resp BP Pulse Ox 06/05/19 15:27 98.6 F 06/05/19 14:21 103 H 16 06/05/19 11:22 98.4 F 06/05/19 10:43 104 H 17 94 L 06/05/19 09:23 106 H 134/84 06/05/19 07:36 95 06/05/19 07:31 108 H 13 06/05/19 07:20 98.6 F 06/05/19 05:30 99 F 06/05/19 03:47 96 Weight Admit Weight 112 lb 9.6 oz Weight 112 lb Most Recent Monitor Data Heart Rate from ECG 115 NIBP 131/76 NIBP BP-Mean 94 Respiration from ECG 12 SpO2 98 I&O: 06/04/19 06/05/19 06/06/19 06:59 06:59 06:59 Intake Total 1620 980 480 Output Total 1325 400 Balance 295 580 480 Result Diagrams: 06/04/19 03:43 06/04/19 19:03 Hospitalist ROS - Review of Systems Constitutional: denies: chills Eyes: denies: vision change ENT: denies: ear discharge Respiratory: denies: cough, dry - Medication Medications: Active Medications Generic Name Dose Route Start Last Admin Trade Name Freq PRN Reason Stop Dose Admin Albuterol/Ipratropium 3 ml 06/02/19 17:04 06/03/19 04:52 Duoneb NEB 3 ml [id number] PRN Administration SOB &/or Wheezing Albuterol/Ipratropium 3 ml 06/02/19 18:30 06/05/19 14:21 Duoneb NEB 3 ml [id number] GARRY Administration Amlodipine Besylate 5 mg 06/04/19 09:00 06/05/19 09:23 Norvasc PO 5 mg DAILY GARRY Administration Aspirin 81 mg 06/04/19 09:00 06/05/19 09:23 Aspirin Chewable PO 81 mg DAILY GARRY Administration Budesonide 0.25 mg 06/02/19 18:30 06/05/19 07:31 Pulmicort Neb Solution INH 0.25 mg BID-RT GARRY Administration Calcium Carbonate 1,000 mg 06/03/19 21:45 06/04/19 22:09 Tums PO 1,000 mg Q6H PRN Administration HEARTBURN/INDIGESTION Cholecalciferol 1,000 units 06/04/19 09:00 06/05/19 09:22 Vitamin D3 PO 1,000 units DAILY GARRY Administration Docusate Sodium 100 mg 06/03/19 09:00 06/05/19 09:23 Colace PO 100 mg BID GARRY Administration Enoxaparin Sodium 30 mg 06/03/19 09:00 06/05/19 09:22 Lovenox SC 30 mg 0900 GARRY Administration Levofloxacin 500 mg/ Device 100 mls @ 100 mls/hr 06/03/19 11:00 06/05/19 11: 26 IVPB 100 mls 1100 GARRY Administration Loratadine 10 mg 06/03/19 09:00 06/05/19 09:22 Claritin PO 10 mg DAILY GARRY Administration Lorazepam 0.5 mg 06/02/19 19:23 06/03/19 08:15 Ativan PO 0.5 mg Q6H PRN Administration Anxiety Losartan Potassium 25 mg 06/04/19 09:00 06/05/19 09:23 Cozaar PO 25 mg DAILY GARRY Administration Methylprednisolone Sodium Succinate 20 mg 06/05/19 12:00 06/05/19 11:26 Solu-Medrol IVP 20 mg Q6HR GARRY Administration Mometasone Furoate/Formoterol Fumar 2 puff 06/03/19 18:30 06/05/19 07:30 Dulera 200 Mcg/5 Mcg Inhaler INH 2 puff BID-RT GARRY Administration Rosuvastatin Calcium 10 mg 06/03/19 21:00 06/04/19 22:09 Crestor PO 10 mg HS GARRY Administration - Exam General Appearance: NAD, awake alert Eye: PERRL, anicteric sclera ENT: normocephalic atraumatic, no oropharyngeal lesions Neck: supple, symmetric, no JVD, no thyromegaly Heart: RRR, no murmur, no gallops Respiratory - other findings: diminished breath sounds bilaterally Gastrointestinal: soft, non-tender, non-distended Extremities: no cyanosis, no clubbing, no edema Skin: normal turgor, no lesions, no rashes Neurological: cranial nerve grossly intact, normal sensation to touch, no focal deficits, no new deficit Musculoskeletal: normal tone, normal strength, no muscle wasting Psychiatric: normal affect, normal behavior, A&O x 3 Hosp A/P - Plan CTA chest: no evidence of PE, severe emphysema, bibasilar atelectasis Chest X ray: emphysema. Minimal scarring/atelectasis left lung base. No active cardiopulmonary abnormalities. Atherosclerosis This is a 69 year old male with past medical history of lung cancer, COPD, hyperlipidemia, hypertension, CV, COPD who presented with acute shortness of breath, requiring ICU admission on 50% venti-mask Acute hypoxic respiratory failure likely secondary to COPD exacerbation - chest X ray showed emphysema, CTA showed no PE, troponins negative - blood cultures are negative. Steroids weaned to 20 mg q6 hours per pulmonary. Continue IV levaquin day 3 - ECHO done and pending Lactic acidosis - resolved -was 4.8 on admission, now down to 2.0, unclear etiology, repeat troponins and ECHO - no evidence of pneumonia Hypokalemia - resolved Anemia - Hb 8.2, B12 and folate normal History of Lung cancer - in remission currently BPH - flomax and tamulosin Hypertension - continue amlodipine and losartan Code status: full code Diet: regular diet
[2019-06-05] MEDS: Rosuvastatin 10 MG TAB PO SCH (19:24)
[2019-06-05] MEDS: Calcium Carbonate 500 MG ChewTAB PO PRN (19:31)
[2019-06-06] MEDS: methylPREDNISolone Sod Succ 40 MG VIAL IVP SCH (05:37)
[2019-06-06] MEDS: Budesonide 0.25 MG/2 ML NEB INH SCH ×2 (07:02→18:44)
[2019-06-06] MEDS: Mometasone/Formoterol 120 PUFF INHALER INH SCH ×2 (07:03→18:44)
[2019-06-06] MEDS: Losartan 25 MG TAB PO SCH (08:24)
[2019-06-06] MEDS: Enoxaparin Sodium 30 MG/0.3 ML SYRINGE SC SCH (08:24)
[2019-06-06] MEDS: Amlodipine 5 MG TAB PO SCH (08:24)
[2019-06-06] MEDS: Aspirin Chewable 81 MG TAB PO SCH (08:25)
[2019-06-06] MEDS: Loratadine 10 MG TAB PO SCH (08:25)
[2019-06-06] MEDS: Docusate 100 MG CAP PO SCH ×2 (08:25→20:45)
[2019-06-06] MEDS: predniSONE 20 MG TAB PO SCH (09:04)
--- NOTE | 2019-06-06 09:57 | PRG ---
DATE OF SERVICE: 06/06/2019 SUBJECTIVE: Mr. Forde feels good today. OBJECTIVE: VITAL SIGNS: Temperature is 98.2, pulse 105, respirations 20, sat 92%. HEENT: Unremarkable. NECK: No JVD. No bruits. LUNGS: Clear without wheezing, rhonchi. CARDIAC: S1, S2. Regular. ABDOMEN: Soft. EXTREMITIES: No edema. ASSESSMENT: Chronic obstructive pulmonary disease with exacerbation. PLAN: CT pulmonary angiogram was normal. Echocardiogram shows some mild diastolic dysfunction. He is probably ready to go home. I will switch him over to oral steroids and oral antibiotics. Job ID: [id number]
[2019-06-06] MEDS: Rosuvastatin 10 MG TAB PO SCH (20:45)
--- NOTE | 2019-06-06 21:27 | PDOC.HOSPP ---
- Subjective Encounter Date: 06/06/19 Encounter Time: 11:00 Subjective: The patient is feeling better. Denies significant cough, just mild with lynn sputum. Shortness of breath is better. He is on room air. - Objective Vital Signs & Weight: Vital Signs (12 hours) Temp Pulse Resp BP Pulse Ox 06/06/19 20:45 102 H 06/06/19 19:14 98.1 F 111 H 20 122/69 94 L 06/06/19 18:44 106 H 18 92 L 06/06/19 14:46 99 20 90 L 06/06/19 10:40 100 20 90 L Weight Admit Weight 112 lb 9.6 oz Weight 110 lb 1 oz Most Recent Monitor Data Heart Rate from ECG 106 NIBP 108/65 NIBP BP-Mean 79 Respiration from ECG 15 SpO2 92 I&O: 06/05/19 06/06/19 06/07/19 06:59 06:59 06:59 Intake Total 980 1121 Output Total 400 600 600 Balance 580 521 -600 Result Diagrams: 06/04/19 03:43 06/04/19 19:03 Hospitalist ROS - Review of Systems Constitutional: denies: chills, sweats Eyes: denies: vision change - Medication Medications: Active Medications Generic Name Dose Route Start Last Admin Trade Name Freq PRN Reason Stop Dose Admin Albuterol/Ipratropium 3 ml 06/02/19 17:04 06/03/19 04:52 Duoneb NEB 3 ml [id number] PRN Administration SOB &/or Wheezing Albuterol/Ipratropium 3 ml 06/02/19 18:30 06/06/19 18:44 Duoneb NEB 3 ml [id number] GARRY Administration Amlodipine Besylate 5 mg 06/04/19 09:00 06/06/19 08:24 Norvasc PO 5 mg DAILY GARRY Administration Aspirin 81 mg 06/04/19 09:00 06/06/19 08:25 Aspirin Chewable PO 81 mg DAILY GARRY Administration Budesonide 0.25 mg 06/02/19 18:30 06/06/19 18:44 Pulmicort Neb Solution INH 0.25 mg BID-RT GARRY Administration Calcium Carbonate 1,000 mg 06/03/19 21:45 06/05/19 19:31 Tums PO 1,000 mg Q6H PRN Administration HEARTBURN/INDIGESTION Cholecalciferol 1,000 units 06/04/19 09:00 06/06/19 08:24 Vitamin D3 PO 1,000 units DAILY GARRY Administration Docusate Sodium 100 mg 06/03/19 09:00 06/06/19 20:45 Colace PO Not Given BID GARRY Enoxaparin Sodium 30 mg 06/03/19 09:00 06/06/19 08:24 Lovenox SC 30 mg 0900 GARRY Administration Levofloxacin 500 mg 06/06/19 09:00 06/06/19 09:04 Levaquin PO 500 mg 0900 GARRY Administration Lorazepam 0.5 mg 06/02/19 19:23 06/03/19 08:15 Ativan PO 0.5 mg Q6H PRN Administration Anxiety Losartan Potassium 25 mg 06/04/19 09:00 06/06/19 08:24 Cozaar PO 25 mg DAILY GARRY Administration Mometasone Furoate/Formoterol Fumar 2 puff 06/03/19 18:30 06/06/19 18:44 Dulera 200 Mcg/5 Mcg Inhaler INH 2 puff BID-RT GARRY Administration Prednisone 40 mg 06/06/19 09:00 06/06/19 09:04 Prednisone PO 40 mg DAILY GARRY Administration Rosuvastatin Calcium 10 mg 06/03/19 21:00 06/06/19 20:45 Crestor PO 10 mg HS GARRY Administration - Exam General Appearance: NAD, awake alert Eye: PERRL, anicteric sclera ENT: normocephalic atraumatic, no oropharyngeal lesions Neck: supple, symmetric, no JVD Heart: RRR, no murmur, no gallops, no rubs Respiratory: no rales, no ronchi. negative: wheezes Gastrointestinal: soft, non-tender, non-distended Extremities: no cyanosis, no clubbing, no edema Skin: normal turgor, no lesions, no rashes Neurological: cranial nerve grossly intact, normal sensation to touch, no focal deficits, no new deficit Musculoskeletal: normal tone, normal strength, no muscle wasting Hosp A/P - Plan CTA chest: no evidence of PE, severe emphysema, bibasilar atelectasis Chest X ray: emphysema. Minimal scarring/atelectasis left lung base. No active cardiopulmonary abnormalities. Atherosclerosis This is a 69 year old male with past medical history of lung cancer, COPD, hyperlipidemia, hypertension, CV, COPD who presented with acute shortness of breath, requiring ICU admission on 50% venti-mask Acute hypoxic respiratory failure likely secondary to COPD exacerbation - resolved - patient admitted and was requiring oxygen in ICU but now transferred to floor on room air - chest X ray showed emphysema, CTA showed no PE, troponins negative - blood cultures are negative. Steroids weaned to oral prednisone and levaquin switched to oral today. - ECHO done and unremarkable Lactic acidosis - resolved -was 4.8 on admission, now down to 2.0, unclear etiology, repeat troponins and ECHO - no evidence of pneumonia Hypokalemia - resolved Anemia - Hb 8.2, B12 and folate normal History of Lung cancer - in remission currently BPH - flomax and tamulosin Hypertension - continue amlodipine and losartan Code status: full code Diet: regular diet
[2019-06-07 05:37] LABS: Mean Corpuscular HGB CONC 33.6 g/dL (32.0-36.0); Mean Corpuscular Hemoglobin 32.9 pg (27.0-31.0); Mean Corpuscular Volume 97.8 fL (78.0-98.0); Mean Platelet Volume 5.8 fL (7.4-10.4); Platelet Count 192 thou/uL (130-400); RBC Distribution Width 18.7 % (11.5-14.5); Red Blood Cell (RBC) Count 2.74 mill/uL (4.70-6.10); White Blood Cell (WBC) Count 6.8 thou/uL (4.8-10.8)
[2019-06-07 05:59] LABS: Anion Gap 7 mmol/L (10-20); BUN (Urea Nitrogen) 26 mg/dL (8.4-25.7); Calc. Creatinine Clearance 61 mL/min (70-130); Calcium 8.7 mg/dL (7.8-10.44); Carbon Dioxide 32 mmol/L (23-31); Chloride 103 mmol/L (98-107); Estimated GFR-MDRD Greater than 90; Glucose 104 mg/dL (83-110); Potassium 3.2 mmol/L (3.5-5.1); Sodium 139 mmol/L (136-145)
[2019-06-07] MEDS: Budesonide 0.25 MG/2 ML NEB INH SCH (07:04)
[2019-06-07] MEDS: Mometasone/Formoterol 120 PUFF INHALER INH SCH (07:08)
[2019-06-07 07:37] VITALS: BP 153/72; TEMP 98.3
[2019-06-07] MEDS: predniSONE 20 MG TAB PO SCH (08:33)
[2019-06-07] MEDS: Losartan 25 MG TAB PO SCH (08:34)
[2019-06-07] MEDS: Docusate 100 MG CAP PO SCH (08:34)
[2019-06-07] MEDS: Aspirin Chewable 81 MG TAB PO SCH (08:34)
[2019-06-07] MEDS: Enoxaparin Sodium 30 MG/0.3 ML SYRINGE SC SCH (08:34)
[2019-06-07] MEDS: Amlodipine 5 MG TAB PO SCH (08:34)
--- NOTE | 2019-06-07 09:43 | PRG ---
DATE OF SERVICE: 06/07/2019 SUBJECTIVE: He feels well and wants to go home. OBJECTIVE: VITAL SIGNS: Temperature 98.3, pulse 94, respirations 20, O2 saturation 93%, and blood pressure 153/72. HEENT: Unremarkable. NECK: No adenopathy or JVD. CHEST: Clear. CARDIAC: S1 and S2, regular. ABDOMEN: Soft. EXTREMITIES: No edema. ASSESSMENT: 1. Chronic obstructive pulmonary disease with exacerbation. 2. Lung cancer. PLAN: He is safe to go home. I would finish out a total of 7 days of antibiotics and taper steroids over about 2 weeks. He can follow up with me in about 1 month. Job ID: [id number]
[2019-06-07 10:46] VITALS: BMI 19.5
--- NOTE | 2019-06-08 15:21 | EKG ---
Test Reason : Blood Pressure : / mmHG Vent. Rate : 122 BPM Atrial Rate : 122 BPM P-R Int : 128 ms QRS Dur : 078 ms QT Int : 324 ms P-R-T Axes : 083 075 082 degrees QTc Int : 461 ms Sinus tachycardia Nonspecific ST abnormality Abnormal ECG Confirmed by NIDIA LARA, ELIAS ([id number]), editorial cartoonist DANIE CRUZ ([id number]) on 06/08/2019 3:20:44 PM Referred By: Confirmed By:ELIAS JACOB MD
--- NOTE | 2019-06-10 07:18 | PQF ---
[employer] Central Office Worker Crystal Reports MELLO Dyer CATRACHITO BANERJEE MD [id number]- [id number] CLINICAL DOCUMENTATION CLARIFICATION FORM: POST DISCHARGE Addendum to original discharge summary date: ____ Late entry note date: __ DATE: 06/10/2019 ATTN: CATRACHITO MONIQUE MD Please exercise your independent, professional judgment in responding to the clarification form. Clinical indicators are provided on the bottom of this form for your review Diagnosis : Acute on chronic hypoxic respiratory failure Present on Admission (POA): [ ] Yes [ ] No [ ] Unable to determine Coding guidelines require hospitals to identify whether a diagnosis was present on admission (POA) or not. To accurately assign the appropriate POA indicator, this information must be clearly documented within the medical record. CLINICAL INDICATORS - SIGNS / SYMPTOMS / LABS SOB - Documented in h&P on 06/02 by Catrachito Monique ABG Ph of 7.35 , pCO2 of 34.2, pO2 of 96.7 - Documented in h&P on 06/02 by Catrachito Monique Exacerbation of COPD - Documented in h&P on 06/02 by Catrachito Monique Hypoxia - Documented in h&P on 06/02 by Catrachito Monique Acute on chronic hypoxic respiratory failure - Documetned in PNs on 06/05 by Isaak clemens RISK FACTORS: Hx of COPD - Documented in h&P on 06/02 by Catrachito Monique He smokes about half a pack of cigarettes per day - Documented in h&P on 06/02 by Catrachito Monique TREATMENT: Admit to IMCU - Documented in h&P on 06/02 by Catrachito Monique We will continue Duonebs, albuterol and atrovent every4 Hrs - Documented in h& P on 06/02 by Catrachito Monique We will sweith him to venti mask 50% - Documented in h&P on 06/02 by Catrachito Monique Continue steroids, nebs - Documetned in PNs on 06/05 by Isaak clemens nasal cannula - Vital and Signs [employer] Central Office Worker Crystal Reports Winform Viewer (This form is maintained as a part of the permanent medical record) 2014 [employer]. All Rights Reserved [email or web address] [email or web address] [not provided] MTDD
--- NOTE | 2019-06-10 11:56 | DIS ---
DATE OF ADMISSION: 06/02/2019 DATE OF DISCHARGE: 06/07/2019 ADMITTING DIAGNOSES: Acute hypoxic respiratory failure secondary to chronic obstructive pulmonary disease exacerbation, hypertension, lung cancer status post chemoradiation, hyperlipidemia, anemia. DISCHARGE DIAGNOSES: Acute hypoxic respiratory failure secondary to chronic obstructive pulmonary disease exacerbation, lactic acidosis, hypokalemia, anemia , history of lung cancer. SECONDARY DISCHARGE DIAGNOSES: Benign prostatic hyperplasia, hypertension. CONSULTATIONS: Medical care. PROCEDURES: None. BRIEF HPI: This is a 69-year-old male with past medical history of hypertension, COPD, lung cancer, and CVA, who presented to the emergency room with acute shortness of breath for the past 3 days and nonproductive cough. On presentation to the ER, the patient was noted to have a lactic acid of 3.8. Vitals were unremarkable except for some mild tachycardia. The patient was admitted to the ICU and was placed on IV Levaquin, IV steroids, IV decadron, and normal saline. He was also started on breathing treatments and Atrovent every 4 hours, and he was placed on 50% Ventimask. HOSPITAL COURSE: Acute hypoxic respiratory failure secondary to COPD exacerbation: The patient improved the following day, and was weaned down to 2 L of oxygen. On 06/05 he was transferred to the floor and steroids were tapered. On 06/06/2019, the patient was switched to oral prednisone and tolerated that well. The patient's oxygen requirement has weaned down to room air. His chest x-ray during his hospital course showed emphysema. CTA showed no signs of pulmonary embolism and his troponins were negative. His echocardiogram showed no wall motion abnormalities. The patient was discharged on a prednisone taper over a period of 2 weeks. He was also discharged with 2 more days of Levaquin to complete his 7-day course, Jojo and Amy. Lactic acidosis: The patient was noted to have lactic acid of 4.8 on admission. Repeat lactic acid went down to 2. Troponins were checked and echo, which were unremarkable for any evidence of heart attack. Patient had blood cultures on admission which were negative. Hypokalemia: The patient's potassium level was 3.3 on 06/04/2019. This was replaced and potassium was low again on a day of discharge at 3.2. He was given supplementation. The patient should have repeat potassium level drawn as an outpatient. Anemia: The patient was noted to have hemoglobin and hematocrit of 9.0/26.9. Vitamin B12 and folate levels were normal. Consider outpatient followup. History of lung cancer: Currently in remission. BPH: Continue Flomax and tamsulosin. Hypertension: Continue and losartan. DISCHARGE PHYSICAL EXAMINATION: VITAL SIGNS: On 06/07/2019, temperature 98.3, heart rate 94, respiratory rate 22, O2 saturation 93%, and blood pressure 153/ 72. GENERAL: The patient is alert and oriented x3. Appears slightly fatigue and underweight. CVS: Regular rate and rhythm with no murmurs, rubs, or gallops. LUNGS: Diminished breath sounds bilaterally. ABDOMEN: Soft, nontender, nondistended. EXTREMITIES: No edema. PERTINENT LABORATORY DATA: CBC 06/07/19: white count of 6.8, hemoglobin 9.0, hematocrit 26.9, and platelets are 192,000. BNP: Potassium 3.2, bicarb 32, BUN 26, creatinine 2.79, sodium 139. Troponin I : 0.012, 0.021, and 0.010. Vitamin B12 : 381. Folate : 9.90. PERTINENT IMAGING: Chest x-ray 06/02/2019: emphysema, minimal scarring/atelectasis with left lung base. No active cardiopulmonary abnormalities. Atherosclerosis. CTA thorax 06/04/2019: no evidence of PE, severe emphysema, bibasilar atelectasis. ECHO: EF 60% to 65%, grade 1/3 diastolic dysfunction, mitral annular calcification, mild MR, mild TR. DISCHARGE CONDITION: Stable. ACTIVITY: As tolerated. DIET: [employer] diet. DISCHARGE MEDICATIONS: 1. Amlodipine 5 mg p.o. daily. 2. Aspirin 81 mg p.o. daily. 3. Vitamin D3 1000 units p.o. daily. 4. Albuterol. 5. DuoNeb one inhalation t.i.d. 6. Levaquin 500 mg p.o. daily, two tablets. 7. Claritin 10 mg p.o. daily. 8. Losartan 25 mg p.o. daily. 9. Dulera 2 puffs inhaled b.i.d. 10. Prednisone 10 mg p.o. every morning, taper, 32 tablets. 11. Rosuvastatin 10 mg p.o. at bedtime. 12. Saw palmetto 450 mg p.o. daily. 13. Tamsulosin 0.4 mg p.o. b.i.d. FOLLOWUP ISSUES: Please follow up with the PCP in a week, repeat potassium level . Job ID: [id number] MTDD
== END 2019-06-07 13:04 | disposition home or self-care (01) | DRG 190 ==
LOC: ERS 10:12 → ERHOLD 11:30 → IMCU/EMU 16:49 → T4-A 06-06 06:37
PROVIDERS: ADMIT Internal Medicine; ATTEND Internal Medicine
DX: J44.1 Chronic obstructive pulmonary disease with (acute) exacerbation (principal); J96.21 Acute and chronic respiratory failure with hypoxia; C34.90 Malignant neoplasm of unspecified part of unspecified bronchus or lung; E87.2 Acidosis; I10 Essential (primary) hypertension; E78.5 Hyperlipidemia, unspecified; F17.210 Nicotine dependence, cigarettes, uncomplicated; Z79.82 Long term (current) use of aspirin; I95.9 Hypotension, unspecified; Z66 Do not resuscitate; D64.9 Anemia, unspecified; E87.6 Hypokalemia; N40.0 Benign prostatic hyperplasia without lower urinary tract symptoms; Z86.73 Personal history of transient ischemic attack (TIA), and cerebral infarction without residual deficits; Z79.899 Other long term (current) drug therapy
CPT/HCPCS: 36415; 71045; 71275; 80048; 80053; 82550; 82553; 82607; 82746; 82805; 83605; 83690; 83880; 84484; 85025; 85027; 87040; 90471; 90662; 90670; 93005; 93306; 94640; 94644; 94660; 94664; 96365; 96366; 96367; 96375; G0008; G0009; J1100; J1642; J1650; J1956; J2543; J2920; J2930; J3370; J7512; J7620; J7626; Q9966

== ENCOUNTER 2019-06-30 08:45 | Inpatient (IN) | payer MEDICARE ==
[2019-06-30] MEDS ORDERED: Magnesium 2 GM/50 ML BAG (IN WATER) ONE (08:50)
[2019-06-30] MEDS ORDERED: Albuterol Sulfate 2.5 mg/3 ml Neb ONE (09:05)
[2019-06-30 09:21] LABS: Actual Bicarbonate (HCO3a) 25.2 mEq/L (22-28); Analyzer IN Cardio ER; Base Excess (BEa) 1.3 mEq/L (-2.0 to +3.0); CO2 Tension 37.7 mmHg (35.0-45.0); Calcium, Ionized 1.11 mmol/L (1.12-1.30); O2 Tension (PaO2) 96.8 mmHg (> 70.0); pH, Arterial 7.44 (7.35-7.45)
--- NOTE | 2019-06-30 09:23 | RAD ---
Exam: Chest one view: HISTORY: Shortness of breath, COPD COMPARISON: 06/02/2019 FINDINGS: New interstitial parenchymal changes developing in the left midlung zone and left lower lobe with dev eloping left pleural effusion. Right chest appears overall stable. Heart size is normal. Right subclavian catheter injection port are stable. IMPRESSION: Developing mostly interstitial parenchymal changes in the left mid and lower lung zone and left pleur al effusion since prior exam raising concern for pneumonia.
[2019-06-30 09:24] LABS: Puncture Site LRA
[2019-06-30 09:25] LABS: #Eosinphils 0.3 thou/uL (0.0-0.7); #Lymphocytes 3.3 thou/uL (1.20-3.40); #Neutrophils 4.1 thou/uL (1.40-6.50); %Basophils 0.2 % (0.0-1.0); %Eosinophils 3.3 % (0.0-10.0); %Lymphocytes 37.3 % (21.0-51.0); %Monocytes 11.8 % (0.0-10.0); %Neutrophils 47.5 % (42.0-75.0); Hemoglobin 9.1 g/dL (14.0-18.0); Mean Corpuscular HGB CONC 33.1 g/dL (32.0-36.0); Mean Corpuscular Hemoglobin 32.3 pg (27.0-31.0); Mean Corpuscular Volume 97.6 fL (78.0-98.0); Mean Platelet Volume 5.7 fL (7.4-10.4); Platelet Count 419 thou/uL (130-400); Red Blood Cell (RBC) Count 2.83 mill/uL (4.70-6.10); White Blood Cell (WBC) Count 8.7 thou/uL (4.8-10.8)
[2019-06-30 09:29] LABS: ALV-art Gradient 141.275 (0-20)
[2019-06-30 09:38] LABS: ALT (SGPT) 17 U/L (8-55); AST (SGOT) 19 U/L (5-34); Albumin 3.3 g/dL (3.4-4.8); Alkaline Phosphatase 75 U/L (40-110); Anion Gap 15 mmol/L (10-20); BUN (Urea Nitrogen) 10 mg/dL (8.4-25.7); Calc. Creatinine Clearance 0 mL/min (70-130); Calcium 8.4 mg/dL (7.8-10.44); Carbon Dioxide 27 mmol/L (23-31); Chloride 104 mmol/L (98-107); Estimated GFR-MDRD Greater than 90; Globulin 2.7 g/dL (2.4-3.5); Glucose 113 mg/dL (83-110); Sodium 143 mmol/L (136-145)
[2019-06-30] MEDS ORDERED: Piperacillin/Tazobactam 4.5 GM VIAL ONE (09:46)
[2019-06-30] MEDS ORDERED: Ondansetron PF 4 MG/2 ML Vial IVP PRN (10:47)
[2019-06-30] MEDS ORDERED: Acetaminophen 325 MG TAB PO PRN (10:47)
[2019-06-30] MEDS ORDERED: HYDROcodone/Acetaminophen 5/325 mg Tablet PO PRN (10:47)
[2019-06-30] MEDS ORDERED: HYDROcodone/Acetaminophen 7.5/325 mg Tablet PO PRN (10:47)
[2019-06-30] MEDS ORDERED: Potassium Chloride 20 MEQ TAB ONE ×2 (10:50→10:51)
[2019-06-30] MEDS ORDERED: diphenhydrAMINE 25 MG CAP PO PRN (10:50)
[2019-06-30] MEDS ORDERED: Docusate 100 MG CAP PO PRN (10:50)
[2019-06-30] MEDS ORDERED: Benzonatate 100 MG CAP PO PRN (10:50)
[2019-06-30] MEDS ORDERED: Labetalol HCl 100 MG/20 ML VIAL SLOW IVP PRN (10:50)
[2019-06-30] MEDS ORDERED: Melatonin 3 MG TAB PO PRN (10:50)
[2019-06-30] MEDS ORDERED: Loratadine 10 MG TAB PO PRN (11:00)
[2019-06-30] MEDS ORDERED: cefTRIAXone Sodium 2 MG in Syringe 0 ML IVPB SCH (11:00)
[2019-06-30] MEDS ORDERED: Bacteriostatic Water 30 ML VIAL FS PRN (11:02)
[2019-06-30 13:19] LABS: Lactic Acid 5.1 mmol/L (0.5-2.2)
[2019-06-30] MEDS ORDERED: Sodium Chloride 0.9% 1,000 ML IV SCH (13:45)
[2019-06-30 13:50] VITALS: BMI 19.5
[2019-06-30] MEDS: cefTRIAXone\\ROCEPHIN 2 GM in Sodium Chloride 0.9% 100 ML IVPB SCH (15:02)
--- NOTE | 2019-06-30 15:46 | PDOC.HHP ---
Hospitalist HPI - History of Present Illness Shortness of breath History of Present Illness: Very pleasant 69-year-old gentleman with past medical history of lung cancer on chemotherapy/radiation he states that his last treatment was roughly 4 weeks ago , COPD with a 50+ pack year history who quit smoking roughly 5 or six weeks ago , hypertension, hyperlipidemia, and BPH presents with shortness of breath. Patient was recently discharged from [facility] with COPD exacerbation. Patient finished a full course of his oral antibiotics as recommended. Patient states that he was feeling well up until this morning when he started feeling more short of breath. Patient states that he has been coughing and is having some green productive sputum. Patient with subjective fever and chills. Patient states that he lives with his and ambulates without assistance devices. Patient states he is a full code. I find the patient in the intermediate medical care floor he is breathing well on low-flow nasal cannula. Initially on admission the emergency department physician recommended that the patient needed PRN BiPAP and IMCU placement. Patient started on pulmonary specific antibiotics, IV steroids, and breathing treatments. Pulmonology consultation requested for further recommendations. Hospitalist ROS - Review of Systems All other systems reviewed; all pertinent +/- noted in HPI/Subj - Medication Medications: Active Medications Generic Name Dose Route Start Last Admin Trade Name Freq PRN Reason Stop Dose Admin Albuterol/Ipratropium 3 ml 06/30/19 11:00 06/30/19 13:27 Duoneb NEB 3 ml [id number] GARRY Administration Ceftriaxone Sodium 2 gm/ 100 mls @ 200 mls/hr 06/30/19 13:00 06/30/19 15:02 Sodium Chloride IVPB 07/07/19 13:01 100 mls Q24HR GARRY Administration Sodium Chloride 1,000 mls @ 75 mls/hr 06/30/19 13:45 06/30/19 15:03 Normal Saline 0.9% IV 1,000 mls .[id number] GARRY Administration Hospitalist History - Past Medical History Source: patient Cardiac: reports: HTN, Hyperlipidemia Pulmonary: reports: COPD, emphysema, lung disease, pneumonia Heme/Onc: reports: Cancer (Lung) Renal/: reports: Benign prostatic enlarg. - Family History Family History: reports: hypertension - Social History Smoking Status: Former smoker (Quit 5-6 weeks ago. +50 pack year history) Tobacco Type: cigarettes Alcohol: reports: Rare Drugs: reports: none Living Situation: With Family Domestic Violence: Negative Activity level: independent ambulation - Exam General Appearance: NAD, awake alert General - other findings: Thin, cachectic Eye: PERRL, anicteric sclera ENT: normocephalic atraumatic, moist mucosa Neck: supple, symmetric, no lymphadenopathy Heart: no murmur, no gallops, no rubs Respiratory: no rales, normal chest expansion, no tachypnea, rhonchi, wheezes Respiratory - other findings: Poor air movement bilaterally Gastrointestinal: soft, non-tender, non-distended, no bruit, no guarding, no rigidity Extremities: no cyanosis, no edema Skin: no lesions, no rashes Neurological: cranial nerve grossly intact, normal sensation to touch, no new deficit Musculoskeletal: generalized weakness Psychiatric: normal affect, A&O x 3 Hospitalist Results - Labs Result Diagrams: 06/30/19 09:00 06/30/19 09:00 Lab results: WBC 8.7 thou/uL (4.8-10.8) 06/30/19 09:00 Hgb 9.1 g/dL (14.0-18.0) L 06/30/19 09:00 Hct 27.6 % (42.0-52.0) L 06/30/19 09:00 MCV 97.6 fL (78.0-98.0) 06/30/19 09:00 Plt Count 419 thou/uL (130-400) H 06/30/19 09:00 Neutrophils % 47.5 % (42.0-75.0) 06/30/19 09:00 ABG pH 7.44 (7.35-7.45) 06/30/19 09:15 ABG pCO2 37.7 mmHg (35.0-45.0) 06/30/19 09:15 ABG pO2 96.8 mmHg (> 70.0) H 06/30/19 09:15 Sodium 143 mmol/L (136-145) 06/30/19 09:00 Potassium 3.0 mmol/L (3.5-5.1) L 06/30/19 09:00 Chloride 104 mmol/L (98-107) 06/30/19 09:00 Carbon Dioxide 27 mmol/L (23-31) 11/10/19 09:00 BUN 10 mg/dL (8.4-25.7) 06/30/19 09:00 Creatinine 0.71 mg/dL (0.7-1.3) 06/30/19 09:00 Glucose 113 mg/dL (83-110) H 06/30/19 09:00 Lactic Acid 5.1 mmol/L (0.5-2.2) H* 06/30/19 12:48 Calcium 8.4 mg/dL (7.8-10.44) 06/30/19 09:00 Total Bilirubin 1.0 mg/dL (0.2-1.2) 06/30/19 09:00 AST 19 U/L (5-34) 06/30/19 09:00 ALT 17 U/L (8-55) 06/30/19 09:00 Alkaline Phosphatase 75 U/L (40-110) 06/30/19 09:00 Troponin I Less than 0.010 ng/mL (< 0.028) 06/30/19 09:00 B-Natriuretic Peptide 259.8 pg/mL (0-100) H 06/30/19 09:00 Serum Total Protein 6.0 g/dL (5.8-8.1) 06/30/19 09:00 Albumin 3.3 g/dL (3.4-4.8) L 06/30/19 09:00 - Radiology Interpretation Chest x-ray Status: image reviewed by nc Hospitalist H&P A/P - Problem (1) COPD exacerbation Code(s): J44.1 - CHRONIC OBSTRUCTIVE PULMONARY DISEASE W (ACUTE) EXACERBATION Status: Acute (2) Lung cancer Code(s): C34.90 - MALIGNANT NEOPLASM OF UNSP PART OF UNSP BRONCHUS OR LUNG Status: Acute (3) Tobacco abuse Code(s): Z72.0 - TOBACCO USE Status: Chronic (4) HTN (hypertension) Code(s): I10 - ESSENTIAL (PRIMARY) HYPERTENSION Status: Chronic (5) Lactic acid acidosis Code(s): E87.2 - ACIDOSIS Status: Acute (6) Shortness of breath Code(s): R06.02 - SHORTNESS OF BREATH Status: Acute (7) BPH (benign prostatic hyperplasia) Code(s): N40.0 - BENIGN PROSTATIC HYPERPLASIA WITHOUT LOWER URINRY TRACT SYMP Status: Chronic - Plan Plan: Plan: Admit to [facility] pulmonology consultation, recommendations appreciated pulmonary specific IV antibiotics IV steroids breathing treatments scheduled and as needed patient with WBC count which is normal, afebrile, non-toxic patient with lactic acidosis on admission, sepsis protocol was initiated Recent Echo with preserved EF, though diastolic dysfunction present secondary to COPD resume other home medications as able blood pressure control replace electrolytes as needed
[2019-06-30] MEDS: Azithromycin 500 MG in Sodium Chloride 0.9% 250 ML 250 ML IVPB SCH (17:20)
[2019-06-30] MEDS: Mometasone/Formoterol 120 PUFF INHALER INH SCH (18:37)
[2019-06-30] MEDS ORDERED: Furosemide 40 MG/4 ML VIAL SLOW IVP SCH (18:45)
[2019-06-30] MEDS ORDERED: Potassium Chloride 20 MEQ TAB PO SCH (19:00)
--- NOTE | 2019-06-30 19:07 | CON ---
DATE OF CONSULTATION: 06/30/2019 SERVICE: Pulmonary Medicine. REASON FOR CONSULTATION: [facility] patient. HISTORY OF PRESENT ILLNESS: The patient is a 69-year-old white male with past medical history significant for advanced lung disease and history of lung cancer. He was in his usual state of health up until 2 to 3 days ago when he started having dyspnea that limited his activity. This has been slowly progressive. That being said, on the morning of presentation, he woke up suddenly from sleep and was unable to breathe. He could not catch his breath. He was having some cough, bringing up some white slimy phlegm, it had a little bit of blood tinge to it. He presented to the emergency department. He was given nebulized medications, and steroids. He was tucked into the [facility]. At this point, he appears to be a little more calm. That being said, he indicates this is primarily because he has been up walking around. He denies any current fevers or chills. He is not having any night sweats. In general, he has not had any myalgias, malaise, headache, coryza, or upper respiratory congestion. He denies having any recent sick contacts. He has not experienced any nausea, vomiting, or diarrhea. Otherwise, he is in his usual state of health. PAST MEDICAL HISTORY: 1. Hypertension. 2. Dyslipidemia. 3. COPD. 4. Chronic hypoxic respiratory failure. 5. Lung cancer. 6. BPH. PAST SURGICAL HISTORY: Lung biopsies x2. SOCIAL HISTORY: He drinks alcohol socially. He smokes half pack of cigarettes on a daily basis and denies any illicit drugs. FAMILY HISTORY: Noncontributory. ALLERGIES: SULFA. MEDICATIONS: List of his inpatient medications was reviewed. No specific updates were made at this time. REVIEW OF SYSTEMS: General, head, ears, eyes, nose, throat, cardiovascular, respiratory, GI, , musculoskeletal, neurologic, and skin is negative except as mentioned in the HPI. PHYSICAL EXAMINATION: VITAL SIGNS: Afebrile, pulse 74, respirations 19, saturation 98% on room air. GENERAL: The patient is awake and alert, in no apparent distress. LUNGS: Decent air entry. Crackles and wheezing are both present. There is a prolonged expiratory phase. No rhonchi are appreciated. HEART: Normal rate, regular. ABDOMEN: Soft, nontender, nondistended. Bowel sounds are positive. MUSCULOSKELETAL: No cyanosis or clubbing. No pitting in the bilateral lower extremities. NEUROLOGICAL: Grossly nonfocal. LABORATORY DATA: WBC 8.7, hemoglobin 9.1, platelets 419,000. PH 7.44, pCO2 of 37, PO2 of 96, while wearing BiPAP with FiO2 of 40%. Lactate 5.1. Potassium 3.0. Basic metabolic profile and liver function studies are otherwise unremarkable. Troponin is negative x1. BNP 260, and historic high. Urinalysis is unremarkable. Blood cultures x2 are unremarkable. IMAGING STUDIES: Recent echocardiogram demonstrated 1/3 diastolic dysfunction. Mitral annular calcification is present with mild regurgitation and mild tricuspid regurgitation. Chest x-ray demonstrates chronic lung changes, interstitial fullness. There is likely a left-sided layering effusion. Cephalization is present in bilateral lung davidson. This is consistent with COPD with superimposed interstitial and/or volume overload process. Infiltrates are present and are new compared to the CT of . ASSESSMENT: 1. Acute on chronic hypoxic respiratory failure. 2. Chronic obstructive pulmonary disease with acute exacerbation. 3. Healthcare-associated pneumonia. 4. Acute on chronic diastolic heart failure. DISCUSSION AND PLAN: We will give the patient nebulized medications, steroids, and antibiotics. The antibiotics will be directed at a healthcare associated pathogen. The patient is also clinically volume up. Clinically, he did not have any signs or symptoms of pneumonia coming into the hospital. As such, we will have to consider atypical processes if the patient does not have significant clinical improvement in the next 24 to 48 hours. I will give him a dose of Lasix today and tomorrow morning. He is a little bit volume overloaded. BMP is also consistent with a touch of volume overload. He may very well have some volume mediated respiratory failure. It certainly does not take a lot of water to make sick lungs, not operate well. Pulmonary Critical Care will continue to follow along for the time being. Potassium to be replaced. I will check magnesium tomorrow morning. 70 minutes have been devoted to this patient in various activities. I personally reviewed all imaging studies and laboratory data noted within this document. For fifty percent of this time, I was interacting with the patient at the bedside or coordinating care with the care team. For the remainder of the time I was immediately available to the patient in the hospital unit. Job ID: [id number] [facility]
[2019-06-30] MEDS: Rosuvastatin 10 MG TAB PO SCH (20:23)
[2019-06-30] MEDS: Tamsulosin HCl 0.4 MG CAP PO SCH (20:23)
[2019-07-01 06:23] LABS: #Lymphocytes 0.7 thou/uL (1.20-3.40); #Monocytes 0.5 thou/uL (0.11-0.59); #Neutrophils 3.8 thou/uL (1.40-6.50); %Basophils 0.3 % (0.0-1.0); %Eosinophils 0.3 % (0.0-10.0); %Lymphocytes 13.4 % (21.0-51.0); %Monocytes 10.6 % (0.0-10.0); %Neutrophils 75.4 % (42.0-75.0); Hemoglobin 7.7 g/dL (14.0-18.0); Mean Corpuscular HGB CONC 33.7 g/dL (32.0-36.0); Mean Corpuscular Hemoglobin 32.8 pg (27.0-31.0); Mean Corpuscular Volume 97.5 fL (78.0-98.0); Mean Platelet Volume 5.9 fL (7.4-10.4); Platelet Count 336 thou/uL (130-400); RBC Distribution Width 15.1 % (11.5-14.5); Red Blood Cell (RBC) Count 2.34 mill/uL (4.70-6.10)
[2019-07-01 06:37] LABS: Phosphorus 2.8 mg/dL (2.3-4.7)
[2019-07-01 06:41] LABS: Anion Gap 9 mmol/L (10-20); BUN (Urea Nitrogen) 11 mg/dL (8.4-25.7); Calc. Creatinine Clearance 70 mL/min (70-130); Calcium 7.9 mg/dL (7.8-10.44); Carbon Dioxide 29 mmol/L (23-31); Chloride 105 mmol/L (98-107); Estimated GFR-MDRD Greater than 90; Glucose 121 mg/dL (83-110); Magnesium 1.8 mg/dL (1.6-2.6); Potassium 4.3 mmol/L (3.5-5.1); Sodium 139 mmol/L (136-145)
[2019-07-01] MEDS: Mometasone/Formoterol 120 PUFF INHALER INH SCH ×2 (07:03→18:37)
[2019-07-01] MEDS ORDERED: Amlodipine 5 MG TAB PO SCH (09:00)
[2019-07-01] MEDS ORDERED: methylPREDNISolone Sod Succ 40 MG VIAL IVP SCH (09:00)
[2019-07-01] MEDS: Tamsulosin HCl 0.4 MG CAP PO SCH ×2 (09:29→20:39)
[2019-07-01] MEDS: predniSONE 20 MG TAB PO SCH (09:30)
[2019-07-01] MEDS: Aspirin Chewable 81 MG TAB PO SCH (09:30)
[2019-07-01] MEDS: Enoxaparin Sodium 40 MG/0.4 ML SYRINGE SC SCH (09:31)
[2019-07-01] MEDS: Furosemide 40 MG/4 ML VIAL SLOW IVP SCH ×2 (09:31→12:48)
[2019-07-01] MEDS: Losartan 25 MG TAB PO SCH (09:31)
[2019-07-01] MEDS: cefTRIAXone\\ROCEPHIN 2 GM in Sodium Chloride 0.9% 100 ML IVPB SCH (12:44)
[2019-07-01] MEDS: Azithromycin 500 MG in Sodium Chloride 0.9% 250 ML 250 ML IVPB SCH (12:44)
--- NOTE | 2019-07-01 15:12 | PDOC.HOSPP ---
- Subjective Subjective: Seen and examined. Clinically improving. Less short of breath. Remains on low- flow nasal cannula. Not using BiPAP. Patient with congestive heart failure with diastolic dysfunction, I briefly educated the patient on different types of heart failure and the importance of fluid restrictions and diuretic therapy to improve his breathing. Patient insists he has nothing wrong with his heart. I educated him that his heart is strong and his ejection fraction is good, though diastolic dysfunction is secondary to lung pathology. Patient does not want to take large pills and states he's refusing magnesium and doesn't need any blood pressure medications. Again I tried to educate the patient on why his medications are being given. - Objective Vital Signs & Weight: Vital Signs (12 hours) Temp Pulse Pulse Pulse Resp BP BP 07/01/19 14:15 89 20 07/01/19 11:16 98.2 F 07/01/19 11:02 82 17 07/01/19 10:27 85 90 128/75 125/72 07/01/19 09:30 92 07/01/19 07:32 07/01/19 07:24 98.1 F 07/01/19 07:04 92 18 07/01/19 03:30 98.1 F Pulse Ox Pulse Ox Pulse Ox Pulse Ox 07/01/19 14:15 98 07/01/19 11:16 07/01/19 11:02 07/01/19 10:27 94 L 91 L 94 L 07/01/19 09:30 07/01/19 07:32 98 07/01/19 07:24 07/01/19 07:04 07/01/19 03:30 Weight Weight 110 lb Most Recent Monitor Data Heart Rate from ECG 93 NIBP 129/75 NIBP BP-Mean 93 Respiration from ECG 28 SpO2 96 I&O: 06/30/19 07/01/19 07/02/19 06:59 06:59 06:59 Intake Total 1472 Output Total 2200 Balance -728 Result Diagrams: 07/01/19 05:23 07/01/19 05:23 Radiology Reviewed by me: Yes Hospitalist ROS - Review of Systems All other systems reviewed; all pertinent +/- noted in HPI/Subj - Medication Medications: Active Medications Generic Name Dose Route Start Last Admin Trade Name Freq PRN Reason Stop Dose Admin Albuterol/Ipratropium 3 ml 06/30/19 11:00 07/01/19 14:15 Duoneb NEB 3 ml [id number] GARRY Administration Aspirin 81 mg 07/01/19 09:00 07/01/19 09:30 Aspirin Chewable PO 81 mg DAILY GARRY Administration Cholecalciferol 1,000 units 07/01/19 09:00 07/01/19 09:29 Vitamin D3 PO 1,000 units DAILY GARRY Administration Enoxaparin Sodium 40 mg 07/01/19 09:00 07/01/19 09:31 Lovenox SC Not Given 09 GARRY Furosemide 40 mg 07/01/19 09:00 07/01/19 12:48 Lasix SLOW IVP 40 mg DAILY GARRY Administration Azithromycin 500 mg/ Sodium 250 mls @ 250 mls/hr 06/30/19 12:00 07/01/19 12: 44 Chloride IVPB 250 mls Q24HR GARRY Administration Ceftriaxone Sodium 2 gm/ 100 mls @ 200 mls/hr 06/30/19 13:00 07/01/19 12:44 Sodium Chloride IVPB 07/07/19 13:01 100 mls Q24HR GARRY Administration Losartan Potassium 25 mg 07/01/19 09:00 07/01/19 09:31 Cozaar PO Not Given DAILY [facility] Mometasone Furoate/Formoterol Fumar 2 puff 06/30/19 18:30 07/01/19 07:03 Dulera 200 Mcg/5 Mcg Inhaler INH 2 puff BID-RT GARRY Administration Prednisone 40 mg 07/01/19 08:00 07/01/19 09:30 Prednisone PO 07/06/19 08:01 40 mg QAM-WM GARRY Administration Rosuvastatin Calcium 10 mg 06/30/19 21:00 06/30/19 20:23 Crestor PO 10 mg HS GARRY Administration Tamsulosin HCl 0.4 mg 06/30/19 21:00 07/01/19 09:29 Flomax PO 0.4 mg BID GARRY Administration - Exam General Appearance: NAD, awake alert Eye: anicteric sclera ENT: normocephalic atraumatic, moist mucosa Neck: supple, symmetric, no lymphadenopathy Heart: RRR, no murmur, no gallops, no rubs Respiratory: no tachypnea, rales, rhonchi, wheezes Respiratory - other findings: Short shallow breaths Gastrointestinal: soft, non-tender, non-distended, no guarding, no rigidity Extremities: 1+ LE edema Skin: no lesions (Patient is very thin, there was mild swelling on ankles on admission which has improved), no rashes Neurological: normal sensation to touch, no focal deficits Musculoskeletal: generalized weakness Psychiatric: normal affect, A&O x 3 Hosp A/P (1) COPD exacerbation Code(s): J44.1 - CHRONIC OBSTRUCTIVE PULMONARY DISEASE W (ACUTE) EXACERBATION Status: Acute (2) Lung cancer Code(s): C34.90 - MALIGNANT NEOPLASM OF UNSP PART OF UNSP BRONCHUS OR LUNG Status: Acute (3) Tobacco abuse Code(s): Z72.0 - TOBACCO USE Status: Chronic (4) HTN (hypertension) Code(s): I10 - ESSENTIAL (PRIMARY) HYPERTENSION Status: Chronic (5) Lactic acid acidosis Code(s): E87.2 - ACIDOSIS Status: Acute (6) Shortness of breath Code(s): R06.02 - SHORTNESS OF BREATH Status: Acute (7) BPH (benign prostatic hyperplasia) Code(s): N40.0 - BENIGN PROSTATIC HYPERPLASIA WITHOUT LOWER URINRY TRACT SYMP Status: Chronic - Plan Plan: IMCU, stable for downgraded to medical unit pulmonology consultation, recommendations appreciated pulmonary specific antibiotics IV steroids breathing treatments scheduled and as needed agree with IV Lasix for congestive heart failure with acute exacerbation echocardiogram with the preserved ejection fraction of 60% with diastolic dysfunction WBC count normal, afebrile, non-toxic lactic acidosis on admission, sepsis protocol was initiated resume other home medications as able blood pressure control patient is insistent that he does not need any blood pressure medications, I educated him on the benefits of taking medications as directed. Replace electrolytes as needed
[2019-07-01] MEDS ORDERED: Magnesium Sulfate 2 GM in Sodium Chloride 0.9% 100 ML IVPB SCH (15:45)
[2019-07-01] MEDS ORDERED: Magnesium 2 GM/50 ML 2 GM in Premix Bag 1 BAG IVPB SCH (15:45)
--- NOTE | 2019-07-01 16:14 | PRG ---
DATE OF SERVICE: 07/01/2019 SERVICE: Pulmonary Medicine. INTERVAL HISTORY: The patient is doing really well from respiratory standpoint. With a single dose of Lasix last night, he had significant urine output. He is quite frustrated by this. That being said, he reports breathing well this morning. His appetite has improved. Denies any further fevers, chills, nausea, or vomiting. No significant overnight events. His cough is dry. He is essentially back to baseline at this point. This morning, he is actually refusing his dose of Lasix. We talked about what that means and have a negative impact on his breathing. Once again, he has consented to using this medication. PHYSICAL EXAMINATION: VITAL SIGNS: Afebrile, pulse 89, blood pressure 129/75, respirations 20, and saturation 98% on 2 L nasal cannula. GENERAL: The patient is awake and alert, in no apparent distress. LUNGS: There is a reduced air entry. There is a prolonged expiratory phase. It seems to be moving better air than yesterday. I do not appreciate any adventitious sounds, he is really not moving enough air to appreciate these things. HEART: Normal rate. Regular. ABDOMEN: Soft, nontender, nondistended. Bowel sounds are positive. MUSCULOSKELETAL: No cyanosis or clubbing. There is trace to 1+ pitting in the bilateral lower extremities, which is improved a little bit. NEUROLOGIC: Grossly nonfocal. LABORATORY DATA: WBC 5.0, hemoglobin 7.7 and downtrending, platelets 336,000. Neutrophil count 75% on top of 13% lymphocytes. Basic metabolic profile is otherwise unremarkable. Creatinine is downtrending to 0.68. Lactate was previously 5.1. Magnesium 1.8, phosphorus 2.8. DISCUSSION AND PLAN: 1. Acute hypoxic respiratory failure, improving. 2. Chronic obstructive pulmonary disease with acute exacerbation. 3. Healthcare-associated pneumonia. 4. Acute on chronic diastolic heart failure. 5. Normocytic anemia. DISCUSSION AND PLAN: We will continue to diurese the patient down to euvolemia. Magnesium will be replaced. He has a new onset anemia. It is a normocytic count. If this trend continues, additional investigation may be warranted. I will type and screen him with tomorrow morning's laboratories. Pulmonary will continue to follow along, but Dr. Mulligan has an established relationship with Mr. Forde and will assume coverage in the morning. Job ID: [id number] [facility]
[2019-07-01] MEDS: Rosuvastatin 10 MG TAB PO SCH (20:39)
[2019-07-02 06:19] LABS: Band 2 % (5-11); Hemoglobin 8.4 g/dL (14.0-18.0); Lymphocytes 10 % (21-51); MDiff Complete? YES; Mean Corpuscular Hemoglobin 32.6 pg (27.0-31.0); Mean Corpuscular Volume 98.6 fL (78.0-98.0); Mean Platelet Volume 5.8 fL (7.4-10.4); Monocytes 13 % (0-10); Neutrophil 75 % (42-75); Platelet Count 409 thou/uL (130-400); Polychromasia SLIGHT = 2-3 cells (100X) (0-2/hpf); RBC Distribution Width 15.2 % (11.5-14.5); Red Blood Cell (RBC) Count 2.57 mill/uL (4.70-6.10); White Blood Cell (WBC) Count 6.3 thou/uL (4.8-10.8)
[2019-07-02 06:34] LABS: Iron 46 ug/dL (65-175); Iron Binding Capacity, Total 168 mcg/dL (261-462); Transferrin, Serum 134 mg/dL (163-344)
[2019-07-02 06:44] LABS: Ferritin 927.73 ng/mL (22-322)
[2019-07-02] MEDS: Mometasone/Formoterol 120 PUFF INHALER INH SCH ×2 (07:12→19:28)
--- NOTE | 2019-07-02 08:37 | PRG ---
DATE OF SERVICE: 07/02/2019 SUBJECTIVE: The patient is feeling somewhat better, but very weak. OBJECTIVE: VITAL SIGNS: Temperature is 97.8, pulse 78, respirations 17, O2 saturation 97% on 2 L, and blood pressure 132/58. HEENT: Unremarkable. NECK: No adenopathy or JVD. LUNGS: Clear, but distant breath sounds. CARDIAC: S1, S2. Regular. ABDOMEN: Soft. EXTREMITIES: No edema. ASSESSMENT: 1. Chronic obstructive pulmonary disease - severe. 2. Pneumonia. 3. Lung cancer. PLAN: Mainly deconditioning issue at this point. Physical Therapy is working with the patient. He is to continue his antibiotics and steroids. Should be able to go home soon from my standpoint. Job ID: [id number]
[2019-07-02] MEDS: Aspirin Chewable 81 MG TAB PO SCH (08:59)
[2019-07-02] MEDS: Enoxaparin Sodium 40 MG/0.4 ML SYRINGE SC SCH (08:59)
[2019-07-02] MEDS: Furosemide 40 MG/4 ML VIAL SLOW IVP SCH (08:59)
[2019-07-02] MEDS: predniSONE 20 MG TAB PO SCH (08:59)
[2019-07-02] MEDS: Losartan 25 MG TAB PO SCH (09:00)
[2019-07-02] MEDS: Tamsulosin HCl 0.4 MG CAP PO SCH ×2 (09:00→20:32)
[2019-07-02] MEDS: Azithromycin 500 MG in Sodium Chloride 0.9% 250 ML 250 ML IVPB SCH (12:40)
[2019-07-02] MEDS: cefTRIAXone\\ROCEPHIN 2 GM in Sodium Chloride 0.9% 100 ML IVPB SCH (14:06)
--- NOTE | 2019-07-02 15:20 | PDOC.HOSPP ---
- Subjective Encounter Date: 07/02/19 Encounter Time: 11:30 Subjective: pt up in bed no complains, still feels sob. - Objective Vital Signs & Weight: Vital Signs (12 hours) Temp Pulse Resp BP Pulse Ox Pulse Ox 07/02/19 13:55 104 H 22 H 92 L 07/02/19 11:45 93 L 07/02/19 11:37 97.9 F 75 18 145/85 H 98 07/02/19 08:00 97 07/02/19 07:29 97.8 F 78 17 132/58 L 97 07/02/19 07:12 84 20 96 07/02/19 04:00 97.8 F 83 18 148/75 H 97 Weight Weight 110 lb Most Recent Monitor Data Heart Rate from ECG 93 NIBP 129/75 NIBP BP-Mean 93 Respiration from ECG 28 SpO2 96 I&O: 07/01/19 07/02/19 07/03/19 06:59 06:59 06:59 Intake Total 1472 1090 Output Total 2200 1430 Balance -728 340 Result Diagrams: 07/02/19 05:11 07/01/19 05:23 Hospitalist ROS - Review of Systems Cardiovascular: denies: chest pain, palpitations, orthopnea, paroxysmal noc. dyspnea, edema, light headedness, other Gastrointestinal: denies: nausea, vomiting, abdominal pain, diarrhea, constipation, melena, hematochezia, other Genitourinary: denies: dysuria, frequency, incontinence, hematuria, retention, other - Medication Medications: Active Medications Generic Name Dose Route Start Last Admin Trade Name Freq PRN Reason Stop Dose Admin Albuterol/Ipratropium 3 ml 07/01/19 19:00 07/02/19 13:55 Duoneb NEB 3 ml [id number] GARRY Administration Aspirin 81 mg 07/01/19 09:00 07/02/19 08:59 Aspirin Chewable PO 81 mg DAILY GARRY Administration Cholecalciferol 1,000 units 07/01/19 09:00 07/02/19 08:59 Vitamin D3 PO 1,000 units DAILY GARRY Administration Enoxaparin Sodium 40 mg 07/01/19 09:00 07/02/19 08:59 Lovenox SC Not Given 0900 GARRY Furosemide 40 mg 07/01/19 09:00 07/02/19 08:59 Lasix SLOW IVP 40 mg DAILY GARRY Administration Azithromycin 500 mg/ Sodium 250 mls @ 250 mls/hr 06/30/19 12:00 07/02/19 12: 40 Chloride IVPB 250 mls Q24HR GARRY Administration Ceftriaxone Sodium 2 gm/ 100 mls @ 200 mls/hr 06/30/19 13:00 07/02/19 14:06 Sodium Chloride IVPB 07/07/19 13:01 100 mls Q24HR GARRY Administration Losartan Potassium 25 mg 07/01/19 09:00 07/02/19 09:00 Cozaar PO Not Given DAILY GARRY Mometasone Furoate/Formoterol Fumar 2 puff 06/30/19 18:30 07/02/19 07:12 Dulera 200 Mcg/5 Mcg Inhaler INH 2 puff BID-RT GARRY Administration Prednisone 40 mg 07/01/19 08:00 07/02/19 08:59 Prednisone PO 07/06/19 08:01 40 mg QAM-WM GARRY Administration Rosuvastatin Calcium 10 mg 06/30/19 21:00 07/01/19 20:39 Crestor PO 10 mg HS GARRY Administration Tamsulosin HCl 0.4 mg 06/30/19 21:00 07/02/19 09:00 Flomax PO 0.4 mg BID GARRY Administration - Exam Neck: negative: supple, symmetric, no JVD, no thyromegaly, no lymphadenopathy, no carotid bruit, JVD Heart: negative: RRR, no murmur, no gallops, no rubs, normal peripheral pulses, irregular, diminshed peripheral pulses, murmur present, II/IV, III/IV Respiratory: negative: CTAB, no wheezes, no rales, no ronchi, normal chest expansion, no tachypnea, normal percussion, rales, rhonchi, tachypneic, wheezes Hosp A/P (1) COPD exacerbation Code(s): J44.1 - CHRONIC OBSTRUCTIVE PULMONARY DISEASE W (ACUTE) EXACERBATION Status: Acute (2) Lung cancer Code(s): C34.90 - MALIGNANT NEOPLASM OF UNSP PART OF UNSP BRONCHUS OR LUNG Status: Acute (3) HTN (hypertension) Code(s): I10 - ESSENTIAL (PRIMARY) HYPERTENSION Status: Chronic (4) Tobacco abuse Code(s): Z72.0 - TOBACCO USE Status: Chronic - Plan will continue abx for now and steroids. will walk him to see if he will need home oxygen. ef was 60%
[2019-07-02] MEDS: Rosuvastatin 10 MG TAB PO SCH (20:32)
[2019-07-03] MEDS: Mometasone/Formoterol 120 PUFF INHALER INH SCH ×2 (06:35→19:45)
[2019-07-03] MEDS: Cyanocobalamin (Vitamin B-12) 1,000 MCG TAB PO SCH (08:21)
[2019-07-03] MEDS: Losartan 25 MG TAB PO SCH (08:21)
[2019-07-03] MEDS: predniSONE 20 MG TAB PO SCH (08:21)
[2019-07-03] MEDS: Tamsulosin HCl 0.4 MG CAP PO SCH ×2 (08:22→21:19)
[2019-07-03] MEDS: Aspirin Chewable 81 MG TAB PO SCH (08:22)
[2019-07-03] MEDS: Enoxaparin Sodium 40 MG/0.4 ML SYRINGE SC SCH (08:23)
[2019-07-03] MEDS: Furosemide 40 MG/4 ML VIAL SLOW IVP SCH (08:23)
--- NOTE | 2019-07-03 09:09 | PRG ---
DATE OF SERVICE: 07/03/2019 SUBJECTIVE: The patient is feeling better. He says he should be ready to go home by tomorrow. OBJECTIVE: VITAL SIGNS: Temperature 98.2, pulse 95, respirations 18, O2 saturation 93% and blood pressure 149/77. HEENT: Unremarkable. NECK: No adenopathy or JVD. CHEST: Fairly clear. CARDIAC: S1, S2. Regular. ABDOMEN: Soft. EXTREMITIES: No edema. ASSESSMENT: 1. Chronic obstructive pulmonary disease with exacerbation. 2. Lung cancer. 3. Pneumonia. PLAN: He is medically stable for discharge tomorrow. No further recommendations. Job ID: [id number]
[2019-07-03] MEDS: Azithromycin 500 MG in Sodium Chloride 0.9% 250 ML 250 ML IVPB SCH (11:28)
[2019-07-03] MEDS: cefTRIAXone\\ROCEPHIN 2 GM in Sodium Chloride 0.9% 100 ML IVPB SCH (13:15)
--- NOTE | 2019-07-03 18:43 | PDOC.HOSPP ---
- Subjective Encounter Date: 07/03/19 Encounter Time: 14:00 Subjective: pt up in bed does not want to go home today. He states he does not have a ride. I told him we can arrange it. He then states that his is ill. His oxygen sat drop when he ambulates. - Objective Vital Signs & Weight: Vital Signs (12 hours) Temp Pulse Resp BP Pulse Ox 07/03/19 16:00 98.3 F 91 18 92/55 L 96 07/03/19 12:49 90 16 97 07/03/19 11:32 120/58 L 07/03/19 07:59 98.2 F 95 18 149/77 H 93 L Weight Weight 110 lb Most Recent Monitor Data Heart Rate from ECG 93 NIBP 129/75 NIBP BP-Mean 93 Respiration from ECG 28 SpO2 96 I&O: 07/02/19 07/03/19 07/04/19 06:59 06:59 06:59 Intake Total 1090 950 360 Output Total 1430 1010 460 Balance -340 -60 -100 Result Diagrams: 07/02/19 05:11 07/01/19 05:23 Hospitalist ROS - Review of Systems Respiratory: reports: shortness of breath. denies: cough, dry, hemoptysis, SOB with excertion, pleuritic pain, sputum, wheezing, other Cardiovascular: denies: chest pain, palpitations, orthopnea, paroxysmal noc. dyspnea, edema, light headedness, other Gastrointestinal: denies: nausea, vomiting, abdominal pain, diarrhea, constipation, melena, hematochezia, other - Medication Medications: Active Medications Generic Name Dose Route Start Last Admin Trade Name John PRN Reason Stop Dose Admin Albuterol/Ipratropium 3 ml 07/01/19 19:00 07/03/19 12:49 Duoneb NEB 3 ml [id number] GARRY Administration Aspirin 81 mg 07/01/19 09:00 07/03/19 08:22 Aspirin Chewable PO 81 mg DAILY GARRY Administration Cholecalciferol 1,000 units 07/01/19 09:00 07/03/19 08:21 Vitamin D3 PO 1,000 units DAILY GARRY Administration Cyanocobalamin 1,000 mcg 07/03/19 09:00 07/03/19 08:21 Vitamin B-12 PO 1,000 mcg DAILY GARRY Administration Enoxaparin Sodium 40 mg 07/01/19 09:00 07/03/19 08:23 Lovenox SC Not Given 0900 GARRY Furosemide 40 mg 07/01/19 09:00 07/03/19 08:23 Lasix SLOW IVP 40 mg DAILY GARRY Administration Azithromycin 500 mg/ Sodium 250 mls @ 250 mls/hr 06/30/19 12:00 07/03/19 11: 28 Chloride IVPB 250 mls Q24HR GARRY Administration Ceftriaxone Sodium 2 gm/ 100 mls @ 200 mls/hr 06/30/19 13:00 07/03/19 13:15 Sodium Chloride IVPB 07/07/19 13:01 100 mls Q24HR GARRY Administration Losartan Potassium 25 mg 07/01/19 09:00 07/03/19 08:21 Cozaar PO 25 mg DAILY GARRY Administration Mometasone Furoate/Formoterol Fumar 2 puff 06/30/19 18:30 07/03/19 06:35 Dulera 200 Mcg/5 Mcg Inhaler INH 2 puff BID-RT GARRY Administration Prednisone 40 mg 07/01/19 08:00 07/03/19 08:21 Prednisone PO 07/06/19 08:01 40 mg QAM-WM GARRY Administration Rosuvastatin Calcium 10 mg 06/30/19 21:00 07/02/19 20:32 Crestor PO 10 mg HS GARRY Administration Tamsulosin HCl 0.4 mg 06/30/19 21:00 07/03/19 08:22 Flomax PO 0.4 mg BID GARRY Administration - Exam Neck: negative: supple, symmetric, no JVD, no thyromegaly, no lymphadenopathy, no carotid bruit, JVD Heart: negative: RRR, no murmur, no gallops, no rubs, normal peripheral pulses, irregular, diminshed peripheral pulses, murmur present, II/IV, III/IV Respiratory: negative: CTAB, no wheezes, no rales, no ronchi, normal chest expansion, no tachypnea, normal percussion, rales, rhonchi, tachypneic, wheezes Hosp A/P (1) COPD exacerbation Code(s): J44.1 - CHRONIC OBSTRUCTIVE PULMONARY DISEASE W (ACUTE) EXACERBATION Status: Acute (2) Lung cancer Code(s): C34.90 - MALIGNANT NEOPLASM OF UNSP PART OF UNSP BRONCHUS OR LUNG Status: Acute (3) HTN (hypertension) Code(s): I10 - ESSENTIAL (PRIMARY) HYPERTENSION Status: Chronic (4) Tobacco abuse Code(s): Z72.0 - TOBACCO USE Status: Chronic - Plan will continue abx for now and steroids. will walk him to see if he will need home oxygen. ef was 60% 07/03 will change abx to po, will need home oxygen since his oxygen dropped. will discharge in am. will get home PT.
[2019-07-03] MEDS: Rosuvastatin 10 MG TAB PO SCH (21:19)
[2019-07-04] MEDS: Mometasone/Formoterol 120 PUFF INHALER INH SCH ×2 (06:57→18:31)
[2019-07-04] MEDS: Tamsulosin HCl 0.4 MG CAP PO SCH ×2 (08:15→20:26)
[2019-07-04] MEDS: predniSONE 20 MG TAB PO SCH (08:15)
[2019-07-04] MEDS: Aspirin Chewable 81 MG TAB PO SCH (08:16)
[2019-07-04] MEDS: Cyanocobalamin (Vitamin B-12) 1,000 MCG TAB PO SCH (08:16)
[2019-07-04] MEDS: Losartan 25 MG TAB PO SCH (08:17)
[2019-07-04] MEDS: Enoxaparin Sodium 40 MG/0.4 ML SYRINGE SC SCH (08:17)
--- NOTE | 2019-07-04 08:52 | PRG ---
DATE OF SERVICE: 07/04/2019 SUBJECTIVE: He says he still feels poorly mainly from shortness of breath. He is very hesitant to go home. OBJECTIVE: VITAL SIGNS: Temperature 98.0, pulse 94, respirations 22, O2 saturation 93%, and blood pressure 132/67. HEENT: Unremarkable. NECK: No adenopathy or JVD. LUNGS: Distant, but clear breath sounds. CARDIAC: S1 and S2. Regular. ABDOMEN: Soft. EXTREMITIES: No edema. ASSESSMENT: 1. Chronic obstructive pulmonary disease with exacerbation. 2. Lung cancer. 3. Pneumonia. PLAN: The patient is stable for transfer to the next level of care, whether that be home or fdc with rehab. No further recommendations at this time. Job ID: [id number]
[2019-07-04] MEDS: Azithromycin 500 MG in Sodium Chloride 0.9% 250 ML 250 ML IVPB SCH (11:29)
[2019-07-04] MEDS: cefTRIAXone\\ROCEPHIN 2 GM in Sodium Chloride 0.9% 100 ML IVPB SCH (13:15)
[2019-07-04] MEDS: Rosuvastatin 10 MG TAB PO SCH (20:26)
[2019-07-05] MEDS: Mometasone/Formoterol 120 PUFF INHALER INH SCH (06:43)
[2019-07-05 07:57] VITALS: BP 144/72; TEMP 97.7
--- NOTE | 2019-07-05 08:51 | PRG ---
DATE OF SERVICE: 07/05/2019 SUBJECTIVE: The patient is doing well. Has no complaints. OBJECTIVE: VITAL SIGNS: Temperature 97.7, pulse 81, respirations 16, O2 saturation 93%, and blood pressure 144/72. HEENT: Unremarkable. NECK: No adenopathy or JVD. CHEST: Clear. CARDIAC: S1, S2. Regular. ABDOMEN: Soft. EXTREMITIES: No edema. ASSESSMENT: Chronic obstructive pulmonary disease with exacerbation/pneumonia. PLAN: He is stable for discharge to skilled unit. No further recommendations at this time. Please recall if further assistance needed. Job ID: [id number]
--- NOTE | 2019-07-05 09:03 | PDOC.HOSPP ---
- Subjective Encounter Date: 07/04/19 Encounter Time: 09:45 Subjective: pt now does not want to go home and want rehab. He was educated by human services case manager that he cannot go to inpatient rehab and to go to snf per his insurance. - Objective Vital Signs & Weight: Vital Signs (12 hours) Temp Pulse Resp BP Pulse Ox 07/05/19 07:52 97.7 F 81 16 144/72 H 93 L 07/05/19 06:41 81 12 91 L Weight Weight 110 lb Most Recent Monitor Data Heart Rate from ECG 93 NIBP 129/75 NIBP BP-Mean 93 Respiration from ECG 28 SpO2 96 I&O: 07/04/19 07/05/19 07/06/19 06:59 06:59 06:59 Intake Total 1310 3550 Output Total 1110 650 Balance 200 2900 Result Diagrams: 07/02/19 05:11 07/01/19 05:23 Hospitalist ROS - Review of Systems Cardiovascular: denies: chest pain, palpitations, orthopnea, paroxysmal noc. dyspnea, edema, light headedness, other Gastrointestinal: denies: nausea, vomiting, abdominal pain, diarrhea, constipation, melena, hematochezia, other Genitourinary: denies: dysuria, frequency, incontinence, hematuria, retention, other - Medication Medications: Active Medications Generic Name Dose Route Start Last Admin Trade Name Freq PRN Reason Stop Dose Admin Albuterol/Ipratropium 3 ml 07/01/19 19:00 07/05/19 06:41 Duoneb NEB 3 ml [id number] GARRY Administration Aspirin 81 mg 07/01/19 09:00 07/04/19 08:16 Aspirin Chewable PO 81 mg DAILY GARRY Administration Cholecalciferol 1,000 units 07/01/19 09:00 07/04/19 08:15 Vitamin D3 PO 1,000 units DAILY GARRY Administration Cyanocobalamin 1,000 mcg 07/03/19 09:00 07/04/19 08:16 Vitamin B-12 PO 1,000 mcg DAILY GARRY Administration Enoxaparin Sodium 40 mg 07/01/19 09:00 07/04/19 08:17 Lovenox SC Not Given 0900 GARRY Azithromycin 500 mg/ Sodium 250 mls @ 250 mls/hr 06/30/19 12:00 07/04/19 11: 29 Chloride IVPB 250 mls Q24HR GARRY Administration Ceftriaxone Sodium 2 gm/ 100 mls @ 200 mls/hr 06/30/19 13:00 07/04/19 13:15 Sodium Chloride IVPB 07/07/19 13:01 100 mls Q24HR GRARY Administration Losartan Potassium 25 mg 07/01/19 09:00 07/04/19 08:17 Cozaar PO 25 mg DAILY GARRY Administration Mometasone Furoate/Formoterol Fumar 2 puff 06/30/19 18:30 07/05/19 06:43 Dulera 200 Mcg/5 Mcg Inhaler INH 2 puff BID-RT GARYR Administration Prednisone 40 mg 07/01/19 08:00 07/04/19 08:15 Prednisone PO 07/06/19 08:01 40 mg QAM-WM GARRY Administration Rosuvastatin Calcium 10 mg 06/30/19 21:00 07/04/19 20:26 Crestor PO 10 mg HS GARRY Administration Tamsulosin HCl 0.4 mg 06/30/19 21:00 07/04/19 20:26 Flomax PO 0.4 mg BID GARRY Administration - Exam Neck: negative: supple, symmetric, no JVD, no thyromegaly, no lymphadenopathy, no carotid bruit, JVD Heart: negative: RRR, no murmur, no gallops, no rubs, normal peripheral pulses, irregular, diminshed peripheral pulses, murmur present, II/IV, III/IV Respiratory: negative: CTAB, no wheezes, no rales, no ronchi, normal chest expansion, no tachypnea, normal percussion, rales, rhonchi, tachypneic, wheezes Gastrointestinal: negative: soft, non-tender, non-distended, normal bowel sounds , no palpable masses, no hepatomegaly, no splenomegaly, no bruit, no guarding, no rigidity, tender to palpation, distended, diminished bowl sounds, voluntary guarding Hosp A/P (1) COPD exacerbation Code(s): J44.1 - CHRONIC OBSTRUCTIVE PULMONARY DISEASE W (ACUTE) EXACERBATION Status: Acute (2) Lung cancer Code(s): C34.90 - MALIGNANT NEOPLASM OF UNSP PART OF UNSP BRONCHUS OR LUNG Status: Acute (3) HTN (hypertension) Code(s): I10 - ESSENTIAL (PRIMARY) HYPERTENSION Status: Chronic (4) Tobacco abuse Code(s): Z72.0 - TOBACCO USE Status: Chronic - Plan will continue abx for now and steroids. will walk him to see if he will need home oxygen. ef was 60% 07/03 will change abx to po, will need home oxygen since his oxygen dropped. will discharge in am. will get home PT. 07/04 pt changed his mind to go to snf. human services case manager already working on it. I had mentioned snf to pt 2 days ago and he had refused. will continue abx.
[2019-07-05] MEDS: Aspirin Chewable 81 MG TAB PO SCH (09:10)
[2019-07-05] MEDS: Enoxaparin Sodium 40 MG/0.4 ML SYRINGE SC SCH (09:10)
[2019-07-05] MEDS: Losartan 25 MG TAB PO SCH (09:10)
[2019-07-05] MEDS: predniSONE 20 MG TAB PO SCH (09:11)
[2019-07-05] MEDS: Cyanocobalamin (Vitamin B-12) 1,000 MCG TAB PO SCH (09:12)
[2019-07-05] MEDS: Tamsulosin HCl 0.4 MG CAP PO SCH (09:13)
[2019-07-05] MEDS: cefTRIAXone\\ROCEPHIN 2 GM in Sodium Chloride 0.9% 100 ML IVPB SCH (13:16)
[2019-07-05] MEDS: Azithromycin 500 MG in Sodium Chloride 0.9% 250 ML 250 ML IVPB SCH (13:17)
--- NOTE | 2019-07-05 18:53 | DIS ---
DATE OF ADMISSION: 06/30/2019 DATE OF DISCHARGE: 07/05/2019 DISCHARGE DIAGNOSES: 1. Acute on chronic obstructive pulmonary disease, shortness of breath from chronic obstructive pulmonary disease exacerbation. 2. Lung cancer, currently in remission. 3. Hypertension. 4. Tobacco use. HOSPITAL COURSE: The patient is a 69-year-old male who initially presented to the hospital with worsening shortness of breath. Initially, he was seen by Pulmonary given his severe COPD. The patient recently had finished a full dose of oral antibiotics, however, continued to feel short of breath, so he came into the hospital for further evaluation. Initially, he was put on BiPAP in IMCU. He was started on broad-spectrum antibiotics and IV steroids. His steroids were tapered down and so were his antibiotics. There was no flu swab checked on this patient. The patient continued to improve. He initially supposed to be discharged at home, however, that he wanted to go ahead and go into a rehab facility. We did walk him. He had significant hypoxia on ambulation. We will start him on some 2 L of oxygen. The patient also had an echocardiogram which was done on 06/05, which indicated an EF of 60% to 65%, with no significant valvular dysfunction. He also in May had a CTA which was negative for any PE, just indicated severe emphysema. HOME MEDICATIONS: Will be as of the followin. Levaquin 500 mg daily. 2. Norvasc one tablet daily. 3. Rosuvastatin 10 mg at bedtime. 4. Aspirin 81 mg daily. 5. Losartan 25 mg daily. 6. Prednisone 10 mg daily. 7. Tamsulosin 0.4 b.i.d. 8. DuoNeb 1 inhalation t.i.d. 9. Dulera two puffs b.i.d. PHYSICAL EXAMINATION: VITAL SIGNS: At this time, temperature 97.7, pulse 81, respirations 16, 92% on room air, blood pressure 144/72. GENERAL: He is awake, alert, and oriented x3. Does not appear in any distress. CV: S1 and S2 present. No murmurs, rubs, or gallops. ABDOMEN: Soft and nontender. Bowel sounds are present x2. Again, he will be discharged to longterm facility. He will follow up with his primary and also with Pulmonary. Job ID: [id number]
--- NOTE | 2019-07-08 09:17 | PQF ---
MELLO ROCHA KARISHMA [id number] CLINICAL DOCUMENTATION CLARIFICATION FORM: POST DISCHARGE Addendum to original discharge summary date: ____ Late entry note date: __ i already indicated acute on chronic copd exab. please read my discharge summary. DATE:07/08/2019 ATTN:NATHALY DURON Please exercise your independent, professional judgment in responding to the clarification form. Clinical indicators are provided on the bottom of this form for your review Please check appropriate box: Diagnosis occasion on Admission (DOA): [ ] COPD exacerbation [ ] Pneumonia [ ] Acute on chronic diastolic heart failure [ ] Acute hypoxic respiratory failure [ ] Other diagnosis [ ] Unable to determine For continuity of documentation, please document condition throughout progress notes and discharge summary. Thank You. CLINICAL INDICATORS - SIGNS / SYMPTOMS /LABS - Respiratory distress , pneumonia Admit order, 06/30 - he was recently hospitalized 2wk ago for PNA-ED record, 06/30, - COPD exacerbation, health care acquired pneumonia ED, 06/30, - Diastolic dysfunction 2/2 COPD -H and P, 06/30 RISK FACTORS -Acute on chronic resp failure -Consult on 06/30 -Acute on chronic CHF, pneumonia -Consult on 06/30 TREATMENTS: -will continue to diurese the pt down to euvolemia -PN, 07/01 -broad spectrum abxs & IV steroids -DS -07/05 -Single dose of lasix last night PN ,07/01 (This form is maintained as a part of the permanent medical record) 2014 [employer]. All Rights Reserved Jessy Ordaz [not provided] [not provided] MTDD
--- NOTE | 2019-07-20 20:19 | EKG ---
Test Reason : SOB Blood Pressure : / mmHG Vent. Rate : 141 BPM Atrial Rate : 141 BPM P-R Int : 114 ms QRS Dur : 064 ms QT Int : 316 ms P-R-T Axes : 086 075 075 degrees QTc Int : 484 ms Sinus tachycardia with Premature atrial complexes Nonspecific ST and T wave abnormality Abnormal ECG Confirmed by YIN LARA, MANOJ ([id number]), sound editor DAMIR COYNE ([id number]) on 07/20/2019 8:18:33 PM Referred By: Confirmed By:MANOJ ESQUEDA MD
== END 2019-07-05 14:57 | DRG 190 ==
LOC: ERS 08:45 → IMCU/EMU 10:45 → T4-B 07-01 16:07
PROVIDERS: ADMIT Internal Medicine; ATTEND Internal Medicine
DX: J43.9 Emphysema, unspecified (principal); J18.9 Pneumonia, unspecified organism; J96.21 Acute and chronic respiratory failure with hypoxia; I50.33 Acute on chronic diastolic (congestive) heart failure; C34.90 Malignant neoplasm of unspecified part of unspecified bronchus or lung; E87.2 Acidosis; I11.0 Hypertensive heart disease with heart failure; E78.00 Pure hypercholesterolemia, unspecified; F17.210 Nicotine dependence, cigarettes, uncomplicated; N40.0 Benign prostatic hyperplasia without lower urinary tract symptoms; E78.5 Hyperlipidemia, unspecified; D64.9 Anemia, unspecified; Z90.49 Acquired absence of other specified parts of digestive tract; Z88.2 Allergy status to sulfonamides
CPT/HCPCS: 36415; 71045; 80048; 80053; 82607; 82728; 82746; 82805; 83010; 83540; 83550; 83605; 83615; 83735; 83880; 84100; 84466; 84484; 85007; 85025; 85027; 85046; 85060; 86850; 86900; 86901; 87040; 93005; 94640; 94644; 94660; 94664; 94760; 96365; 96366; 96367; 99214; G0463; J0456; J0696; J1642; J1940; J1956; J2543; J3370; J3475; J3490; J7050; J7512; J7611; J7620

== ENCOUNTER 2019-09-03 08:09 | Outpatient (CLI) | payer MEDICARE ==
--- NOTE | 2019-09-03 09:45 | CT ---
CT CHEST WITH CONTRAST CLINICAL INDICATION: History of lung cancer post chemotherapy and radiation therapy. COMPARISON: CTA chest on 06/04/[address] scan examination on 03/12/2019 FINDINGS: Aorta: Vascular calcifications are seen in the thoracic aorta as well as involving the coronary arter ies. Lungs: Previously noted left infrahilar/left lower lobe mass is no longer delineated. There are calci fications in region of the previously noted mass, likely related to interval treatment. There are mild patchy densities seen in the region of the lingula with linear and mild patchy densities at the left lung base. These findings could be related to atelectasis and/or pneumonitis. Emphysematous changes are again seen in the upper lung zones. Calcified granuloma in the right lower lobe is again present. There are stable linear densities in the right upper lobe likely related to areas of mild scarring. No discrete pulmonary nodule is present. Mediastinum: Small pericardial effusion is now present. No enlarged mediastinal or hilar lymph nodes are identified. A right internal jugular vein Mediport catheter is noted in place with tip in the SVC. Calcified subcarinal lymph node is noted. Thyroid gland: Normal CT appearance. Osseous structures: No suspicious lytic or sclerotic osseous lesions are identified. Chest wall: No abnormality visualized. Upper abdomen: Right renal cyst is again seen. There are 3 subcentimeter hypodense lesions in the lat eral segment left hepatic lobe too small to characterize. Lesions were seen on study on 01/28/2019. IMPRESSION: 1. Previously noted left infrahilar mass has resolved with calcifications now noted in this region li jaylon due to interval treatment. No discrete mass is seen in the left lower lobe. Patchy parenchymal densities are present in the left lower lobe posteromedially with trace amount of pleural fluid prese nt. Patchy parenchymal densities are also seen within the lingula. These patchy densities may be attributable to atelectasis and/or pneumonitis. Follow-up evaluation is recommended. 2. No evidence of lymphadenopathy. 3. Small pericardial effusion. 4. Subcentimeter too small to characterize hypodense lesions lateral segment left hepatic lobe.
[2019-09-03] MEDS ORDERED: Iopamidol-370 76% 500 ML 1 ML ONE (13:25)
== END 2019-09-03 08:10 | disposition home or self-care (01) ==
LOC: BICCT 08:09
PROVIDERS: ATTEND Internal Medicine Hematology & Oncology
DX: C34.32 Malignant neoplasm of lower lobe, left bronchus or lung (principal); J98.4 Other disorders of lung; I31.3 Pericardial effusion (noninflammatory); K76.9 Liver disease, unspecified
CPT/HCPCS: 71260; Q9967

== ENCOUNTER 2019-11-30 09:00 | Emergency (ER) | payer MEDICARE ==
--- NOTE | 2019-11-30 09:55 | RAD ---
FRONTAL RADIOGRAPH CHEST: 11/30/2019 HISTORY: Wheezing. Difficulty breathing. History of lung cancer. COMPARISON: Chest CT performed on 09/03/2019. FINDINGS: CT injectable Port-A-Cath noted on the right, stable. Heart and mediastinal contours are stable. The lung apices are obscured by the patient's chin. No pneumothorax is evident. No lobar consolidatio n or alveolar edema. There is perihilar interstitial prominence and interstitial prominence in the lung bases, left greate r than right. There is distortion of the left hilum with irregular increased linear density, more con spicuous than on prior imaging. This is likely related to the patient's history of malignancy. Left p erihilar infiltrate or worsening mass lesion cannot be fully excluded, as the opacity in the left hil ar region has slightly worsened. IMPRESSION: 1. Increased density in the left perihilar region, as detailed above. 2. Diffuse increased linear interstitial density with no lobar consolidation seen. POS: [facility]
[2019-11-30 10:07] LABS: ALT (SGPT) 9 U/L (8-55); AST (SGOT) 17 U/L (5-34); Albumin 4.1 g/dL (3.4-4.8); Alkaline Phosphatase 62 U/L (40-110); Anion Gap 14 mmol/L (10-20); BUN (Urea Nitrogen) 10 mg/dL (8.4-25.7); Calc. Creatinine Clearance 0 mL/min (70-130); Calcium 9.3 mg/dL (7.8-10.44); Carbon Dioxide 24 mmol/L (23-31); Chloride 105 mmol/L (98-107); Estimated GFR-MDRD 83; Globulin 2.3 g/dL (2.4-3.5); Glucose 107 mg/dL (83-110); Potassium 3.8 mmol/L (3.5-5.1); Protein, Total 6.4 g/dL (5.8-8.1); Sodium 139 mmol/L (136-145)
[2019-11-30 10:17] LABS: Band 2 % (5-11); Hemoglobin 12.6 g/dL (14.0-18.0); Lymphocytes 15 % (21-51); MDiff Complete? YES; Mean Corpuscular Volume 94.1 fL (78.0-98.0); Mean Platelet Volume 6.7 fL (7.4-10.4); Monocytes 6 % (0-10); Neutrophil 73 % (42-75); Platelet Count 191 thou/uL (130-400); RBC Distribution Width 11.4 % (11.5-14.5); Reactive Lymphocytes 4 % (0-10); Red Blood Cell (RBC) Count 3.94 mill/uL (4.70-6.10); White Blood Cell (WBC) Count 6.8 thou/uL (4.8-10.8)
[2019-11-30] MEDS ORDERED: Magnesium 2 GM/50 ML BAG (IN WATER) ONE ×2 (10:29→12:09)
== END 2019-11-30 12:31 | disposition home or self-care (01) ==
LOC: ERS 09:00
DX: J44.1 Chronic obstructive pulmonary disease with (acute) exacerbation (principal); R91.8 Other nonspecific abnormal finding of lung field; I10 Essential (primary) hypertension; E78.00 Pure hypercholesterolemia, unspecified; F17.210 Nicotine dependence, cigarettes, uncomplicated; Z85.118 Personal history of other malignant neoplasm of bronchus and lung; Z79.51 Long term (current) use of inhaled steroids; Z79.899 Other long term (current) drug therapy
CPT/HCPCS: 71045; 80053; 83880; 84484; 85025; 93005; 94640; J3475; J7620

== ENCOUNTER 2020-01-14 10:08 | Outpatient (CLI) | payer MEDICARE ==
[~2020-01-14 10:08] MED LIST: Iopamidol-370 76% 500 ML 1 ML ONE
--- NOTE | 2020-01-14 12:11 | CT ---
Exam: Chest CT with contrast COMPARISON: 09/03/2019, 06/04/2019 HISTORY: Lung cancer, status post radiation therapy and chemotherapy. Surveillance exam. COPD. Diffic ulty breathing. FINDINGS: Mediastinum: No mass, lymphadenopathy or hematoma Axilla and lower neck: No lymphadenopathy or masses Heart: Heart size. There are coronary artery calcifications. Moderate pericardial fluid. Aorta: No aneurysm, dissection or periaortic fat stranding Subdiaphragmatic structures: No evidence of an adrenal mass. Subcentimeter hypodensity in the left he patic lobe, too small to characterize. Incompletely evaluated hyperdense lesion in the right kidney with attenuation coefficient of 32 Houns field units, measuring 3.3 x 2.9 cm may represent a complex cyst. Lesion is unchanged from a CT performed on 06/04/2019 Trachea and central bronchi: Patent Pleural spaces: No pleural effusion Pneumothorax: None Right lung: Stable emphysematous change. Better defined spiculated solid nodule in the right upper lo be, measuring 0.6 x 0.4 cm. No additional solid nodules in the right lung. Stable calcified granuloma and 11 the right lower lobe Left lung: Stable emphysematous change. Linear densities in the lingula likely represent scar or atel ectasis. There are interstitial changes with minimal alveolar opacification in the left perihilar region extending into the left lower lobe. The degree of opacification has decreased since the most r ecent examination. Stable linear densities are identified in the left lower lobe which are felt to represent scar and/or atelectasis. No suspicious masses or nodules. Osseous structures: No lytic or blastic lesions. Evaluation is limited due to diffuse bone deminerali zation. IMPRESSION: 1. Worsening pericardial effusion 2. Stable emphysematous changes. 3. Persistent left infrahilar and left lower lobe opacities which may represent posttreatment change. There do appear to be areas of scar and atelectasis. Pneumonitis cannot be entirely excluded. 4. Better defined spiculated nodule in the right upper lobe. Nodule is too small to evaluate with PET imaging and the location makes percutaneous biopsy nonviable. CODE T
== END 2020-01-14 10:09 | disposition home or self-care (01) ==
LOC: BICCT 10:08
PROVIDERS: ATTEND Internal Medicine Hematology & Oncology
DX: C34.32 Malignant neoplasm of lower lobe, left bronchus or lung (principal); J90 Pleural effusion, not elsewhere classified; R91.8 Other nonspecific abnormal finding of lung field
CPT/HCPCS: 71260; 82565; Q9967

== ENCOUNTER 2020-01-20 11:17 | Emergency (ER) | payer MEDICARE ==
[2020-01-20 13:47] LABS: #Eosinphils 0.1 thou/uL (0.0-0.7); #Lymphocytes 1.6 thou/uL (1.20-3.40); #Monocytes 0.5 thou/uL (0.11-0.59); #Neutrophils 3.2 thou/uL (1.40-6.50); %Basophils 0.1 % (0.0-1.0); %Eosinophils 1.4 % (0.0-10.0); %Lymphocytes 29.5 % (21.0-51.0); %Monocytes 9.6 % (0.0-10.0); %Neutrophils 59.4 % (42.0-75.0); Hemoglobin 12.7 g/dL (14.0-18.0); Mean Corpuscular HGB CONC 33.4 g/dL (32.0-36.0); Mean Corpuscular Hemoglobin 31.2 pg (27.0-31.0); Mean Corpuscular Volume 93.2 fL (78.0-98.0); Mean Platelet Volume 6.3 fL (7.4-10.4); Platelet Count 249 thou/uL (130-400); RBC Distribution Width 12.4 % (11.5-14.5); Red Blood Cell (RBC) Count 4.07 mill/uL (4.70-6.10); White Blood Cell (WBC) Count 5.3 thou/uL (4.8-10.8)
[2020-01-20 14:14] LABS: Anion Gap 11 mmol/L (10-20); BUN (Urea Nitrogen) 9 mg/dL (8.4-25.7); Calc. Creatinine Clearance 0 mL/min (70-130); Calcium 9.3 mg/dL (7.8-10.44); Carbon Dioxide 27 mmol/L (23-31); Chloride 106 mmol/L (98-107); Estimated GFR-MDRD 83; Glucose 100 mg/dL (83-110); Potassium 4.3 mmol/L (3.5-5.1); Sodium 140 mmol/L (136-145)
--- NOTE | 2020-01-20 14:15 | ULT ---
BILATERAL LOWER EXTREMITY VENOUS DUPLEX ULTRASOUND INCLUDING COLOR AND SPECTRAL DOPPLER IMAGING: Date: 01/20/2020 HISTORY: Bilateral lower extremity pain, swelling, and edema. TECHNIQUE: Exam performed from groin to ankle including visualized greater saphenous, common femoral, superficia l femoral, profunda femoral, popliteal, trifurcation, and posterior tibial vein regions. FINDINGS: Phasic flow noted at all levels with normal compressibility and normal augmentation. No intraluminal thrombus. IMPRESSION: No evidence for deep venous thrombosis. POS: [facility]
== END 2020-01-20 14:34 | disposition home or self-care (01) ==
LOC: ERS 11:17
DX: R60.0 Localized edema (principal); J44.9 Chronic obstructive pulmonary disease, unspecified; I10 Essential (primary) hypertension; F17.210 Nicotine dependence, cigarettes, uncomplicated; E78.00 Pure hypercholesterolemia, unspecified; Z86.73 Personal history of transient ischemic attack (TIA), and cerebral infarction without residual deficits; Z79.899 Other long term (current) drug therapy
CPT/HCPCS: 36415; 80048; 83880; 85025; 93970